=== PATIENT | female | born 2000 | race Two or more races ===

== ENCOUNTER → 2021-12-05 16:03 | Outpatient (BNVA) | payer MEDICAID, SELFPAY | PROVIDERS: Family Provider Nurse Practitioner; PCP Nurse Practitioner; Visit Provider Nurse Practitioner Family | DX: Z20.822 Contact with and (suspected) exposure to COVID-19 (principal); J06.9 Acute upper respiratory infection, unspecified; Z87.891 Personal history of nicotine dependence | CPT/HCPCS: 87635 ==

== ENCOUNTER 2023-01-10 12:40 | Emergency (ER) | payer MEDICAID, SELFPAY ==
--- NOTE | 2023-01-10 12:45 | W.ED.ABDPA2 ---
HPI - Abdominal Pain General: Chief Complaint: Abdominal Pain Stated Complaint: severe lower abd camps Time Seen by Provider: 01/10/23 12:44 History of Present Illness: Ms. Mascorro is a 22-year-old lady without significant past medical history presenting to the emergency department for lower abdominal pain with cramping. She reports a few weeks of symptoms that have been progressively more intense and frequent. She denies associated GI or symptoms though does report concern over yeast infection. She was sexually active in October and that was her last normal period. 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 Intensity symptoms is moderate when present. Denies specific provoking events. No other specific changes in health, exacerbating, or alleviating factors identified. G0 LMP 11/01/22 Onset (ago): week(s) Pain Consistency: intermittent Location: Suprapubic and Pelvis Severity: moderate Quality: cramping and aching Radiation: none Migration to: no migration Exacerbating factors: nothing Relieving factors: nothing Associated Symptoms: Reports no associated symptoms Review of Systems General: Reports: 10 or more systems reviewed and unremarkable except in HPI and below PFSH ED PFSH: Medical History (Updated 01/18/23 @ 00:00 by TASHA Ghosh) No significant past medical history Surgical History (Updated 01/10/23 @ 12:57 by Alton Curtis MD) No significant past surgical history Physical Exam Const: COMMON NORMALS: alert GENERAL APPEARANCE: cooperative and well developed HENMT: COMMON NORMALS: normocephalic and atraumatic HEAD & SCALP: normocephalic and atraumatic Eye: COMMON NORMALS: conjunctivae normal CONJUNCTIVA: Yes conjunctivae normal SCLERA: sclerae normal Neck/C-Spine: COMMON NORMALS: supple GENERAL: Yes trachea midline Resp: COMMON NORMALS: clear to auscultation bilaterally EFFORT & INSPECTION: Yes able to speak in complete sentences AUSCULTATION: clear to auscultation bilaterally Cardio: COMMON NORMALS: regular rate and regular rhythm RATE: regular rate RHYTHM: regular rhythm GI: COMMON NORMALS: Soft to palpation PALPATION: Yes Soft to palpation and No Tenderness to palpation present (GI) : OTHER: Pelvic exam performed with manager social work present. Normal external genitalia. There is mild amount of thick white discharge. Cervix appears normal and visually closed. No evidence of bleeding. Bimanual exam normal. Extremity: GENERAL: Yes normal exam except as noted and No edema Neuro: COMMON NORMALS: moves all extremities SENSORIUM/ORIENTATION: Yes alert and No Orientation impaired Psych: COMMON NORMALS: mental status grossly normal and Normal thought process present THOUGHT PROCESS: Normal thought process present Course Vital Signs: Vital signs: Vital Signs Temperature 98.6 F 01/10/23 12:47 Pulse Rate 80 01/10/23 15:42 Respiratory Rate 16 01/10/23 15:42 Blood Pressure 131/51 01/10/23 15:42 Pulse Oximetry 99 01/10/23 15:42 Oxygen Delivery Me thod 01/10/23 15:42 MDM - Abdominal Pain Medical Decision Making 22 lady presenting to the ER for evaluation of abdominal pain and abnormal vaginal bleeding. Exam as above. No evidence of peritonitis on abdominal exam. Labs with no leukocytosis, microcytic anemia discussed with patient, no significant metabolic abnormalities, hCG is positive. Squamous epithelial contamination on UA. Ultrasound demonstrates IUP at 10 w 0 d. Wet prep positive for trichomoniasis, BV, yeast. Patient treated with metronidazole. Will be prescribed intravaginal antifungal. Most likely etiology of symptoms is multifactorial including and trichomoniasis/BV/yeast infection. Patient to follow-up with OB. The results of ED evaluation were discussed with the patient including prescriptions and/or symptomatic cares (if applicable) including appropriate and responsible use, followup plan, and return precautions. The patient verbalized understanding and felt safe for discharge. Medical Records I reviewed the patient's medical records. Lab Data I reviewed the patient's lab results. 01/10/23 13:05 01/10/23 13:05 Labs/Radiology: Radiology Impressions Ultrasound 01/10/23 14:43 IMPRESSION: 1. Single intrauterine gestation of 10 weeks 0 days and EDC of 08/08/2023. 2. Normal cardiac activity. Laboratory Results WBC 9.1 10^3/uL (4.0-10.0) 01/10/23 13:05 RBC 4.43 10^6/uL (4.1-5.3) 01/10/23 13:05 Hgb 9.8 g/dL (11.5-15.3) L 01/10/23 13:05 Hct 32.6 % (37.0-47.0) L 01/10/23 13:05 MCV 73.6 fl (81-99) L 01/10/23 13:05 MCH 22.1 pg (28.0-34.0) L 01/10/23 13:05 MCHC 30.1 g/dL (30.0-36.0) 01/10/23 13:05 RDW 17.8 % (12.1-15.1) H 01/10/23 13:05 Plt Count 411 10^3/cmm (130-400) H 01/10/23 13:05 MPV 10.2 fL (7.4-10.4) 01/10/23 13:05 Neut % (Auto) 66.9 % 01/10/23 13:05 Lymph % (Auto) 24.9 % 01/10/23 13:05 [place] % (Auto) 6.5 % 01/10/23 13:05 Eos % (Auto) 1.1 % 01/10/23 13:05 Baso % (Auto) 0.2 % 01/10/23 13:05 Neut # (Auto) 6.11 10^3/uL (1.8-7.7) 01/10/23 13:05 Lymph # (Auto) 2.3 10^3/uL (0.8-4.8) 01/10/23 13:05 [place] # (Auto) 0.6 10^3/uL (0.2-0.9) 01/10/23 13:05 Eos # (Auto) 0.1 10^3/uL (0.0-0.8) 01/10/23 13:05 Baso # (Auto) 0.0 10^3/uL (0.0-0.1) 01/10/23 13:05 Nucleated RBC % (auto) 0 % 01/10/23 13:05 Nucleated RBCs # 0.0 /100WBC 01/10/23 13:05 Sodium 137 mmol/L (136-145) 01/10/23 13:05 Potassium 3.6 mmol/L (3.5-5.1) 01/10/23 13:05 Chloride 102 mmol/L (98-107) 01/10/23 13:05 Carbon Dioxide 23 mmol/L (22-29) 01/10/23 13:05 Anion Gap 15.6 (5-19) 01/10/23 13:05 BUN 8 mg/dL (6-20) 01/10/23 13:05 Creatinine 0.4 mg/dL (0.5-0.9) L 01/10/23 13:05 GFR Calculation 201.5 mL/min (90-130) H 01/10/23 13:05 Glucose 99 mg/dL (65-115) 01/10/23 13:05 Calculated Osmolality 282 mOsm/kg (285-295) L 01/10/23 13:05 Calcium 9.1 mg/dL (8.5-10.5) 01/10/23 13:05 Total Bilirubin 0.2 mg/dL (0.15-1.2) 01/10/23 13:05 AST 13 U/L (0-32) 01/10/23 13:05 ALT 10 U/L (0-33) 01/10/23 13:05 Alkaline Phosphatase 74 U/L (35-105) 01/10/23 13:05 Total Protein 7.4 g/dL (6.6-8.7) 01/10/23 13:05 Albumin 4.2 g/dL (3.5-5.2) 01/10/23 13:05 Globulin 3.2 g/dL (1.3-4.6) 01/10/23 13:05 HCG, Qual Positive (Negative) H 01/10/23 13:10 Ser , Semi-Qnt 32307.00 mIU/mL 01/10/23 13:04 Urine Color Yellow (Yellow) 01/10/23 13:10 Urine Appearance Hazy (CLEAR) A 01/10/23 13:10 Urine pH 7 (5-7) 01/10/23 13:10 Ur Specific [place] 1.020 (1.005-1.030) 01/10/23 13:10 Urine Protein Neg (Negative) 01/10/23 13:10 Urine Glucose (UA) Norm (Normal) 01/10/23 13:10 Urine Ketones Negative (Negative) 01/10/23 13:10 Urine Blood Neg (Negative) 01/10/23 13:10 Urine Nitrate Negative (Negative) 01/10/23 13:10 Urine Bilirubin Neg (Negative) 01/10/23 13:10 Urine Urobilinogen 4 mg/dL (Negative) H 01/10/23 13:10 Ur Leukocyte Esterase 2+ (Negative) H 01/10/23 13:10 Urine RBC 0-4 /hpf (0-2) H 01/10/23 13:10 Urine WBC 5-10 /hpf (0-5) H 01/10/23 13:10 Ur Squamous Epith Cells 15-25 /hpf (0-5) H 01/10/23 13:10 Amorphous Sediment 2+ /hpf 01/10/23 13:10 Urine Bacteria Trace /hpf (NONE) 01/10/23 13:10 Urine Mucus 1+ /hpf 01/10/23 13:10 Urine Yeast Trace /hpf 01/10/23 13:10 Blood Type O Positive 01/10/23 14:17 Rho(D) Type Positive 01/10/23 14:17 Discharge Plan Discharge Patient Disposition: Home Clinical Impression: Abdominal cramping affecting , 10 weeks gestation of , Microcytic anemia, Bacterial vaginosis, Trichomonal vaginitis, Vaginal yeast infection Condition: Stable Discharge Orders: Discharge ED (Routine); Ordered 01/10/23 Ordered By: Alton Curtis Discharge Diet: Usual diet Discharge Activity: Resume usual activity Patient Instructions: Bacterial Vaginosis (ED), Trichomoniasis (ED), Yeast Infection (ED), at 7 to 10 Weeks (ED) Activity Restrictions/Additional Instructions: Thank you for visiting the emergency department. You were seen and evaluated for abdominal pain. The most likely cause of your symptoms is multifactorial. You are not at approximately 10 weeks. Additionally you have a yeast infection as well as trichomoniasis and bacterial vaginosis. The trichomoniasis and bacterial vaginosis should be cured with the medication administered in the emergency department. I will prescribe a vaginal cream for the yeast infection. I will message case management for OB follow-up. Return to the emergency department for uncontrolled symptoms or anything else that you are concerned about and feel needs emergency department evaluation. As discussed your school does need to review MSDS sheets to evaluate for safety during . Acetone is not safe during . 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
[2023-01-10 12:47] VITALS: BP 127/57; PULSE 100; RESP 16; TEMP 37; O2SAT 100; BMI 29.9
[2023-01-10 13:20] LABS: Basophils % 0.2 %; Eosinophils # 0.1 10^3/uL (0.0-0.8); Eosinophils % 1.1 %; Hematocrit 32.6 % (37.0-47.0); Hemoglobin 9.8 g/dL (11.5-15.3); Lymphocytes # 2.3 10^3/uL (0.8-4.8); Lymphocytes % 24.9 %; Mean Corpuscular HGB Conc 30.1 g/dL (30.0-36.0); Mean Corpuscular Hemoglobin 22.1 pg (28.0-34.0); Mean Corpuscular Volume 73.6 fl (81-99); Mean Platelet Volume 10.2 fL (7.4-10.4); Monocytes # 0.6 10^3/uL (0.2-0.9); Monocytes % 6.5 %; Neutrophils # 6.11 10^3/uL (1.8-7.7); Neutrophils % 66.9 %; Nucleated Red Blood Cells % 0 %; Platelet Count 411 10^3/cmm (130-400); Red Blood Count 4.43 10^6/uL (4.1-5.3); Red Cell Distribution Width 17.8 % (12.1-15.1); White Blood Count 9.1 10^3/uL (4.0-10.0)
[2023-01-10 13:29] LABS: HCG Qualitative Urine. Positive (Negative)
[2023-01-10 13:35] LABS: Alanine Aminotransferase 10 U/L (0-33); Albumin Level 4.2 g/dL (3.5-5.2); Alkaline Phosphatase 74 U/L (35-105); Anion Gap 15.6 (5-19); Aspartate Amino Transferase 13 U/L (0-32); Blood Urea Nitrogen 8 mg/dL (6-20); Calcium 9.1 mg/dL (8.5-10.5); Carbon Dioxide 23 mmol/L (22-29); Chloride 102 mmol/L (98-107); Globulin 3.2 g/dL (1.3-4.6); Glomerular Filtration Rate 201.5 mL/min (90-130); Glucose 99 mg/dL (65-115); Osmolality Calculated 282 mOsm/kg (285-295); Potassium 3.6 mmol/L (3.5-5.1); Sodium 137 mmol/L (136-145); Total Bilirubin 0.2 mg/dL (0.15-1.2); Total Protein 7.4 g/dL (6.6-8.7)
[2023-01-10 14:30] LABS: Urine Color Yellow (Yellow)
[2023-01-10 14:31] LABS: Add Urine Microscopic? YES; Bilirubin Urine Neg (Negative); Blood Urine Neg (Negative); Glucose Urine UA Norm (Normal); Ketones Urine Negative (Negative); Leukocyte Esterase Urine 2+ (Negative); Nitrate Urine Negative (Negative); Protein Urine Neg (Negative); Urine Appearance Hazy (CLEAR); Urobilinogen Urine 4 mg/dL (Negative); pH Urine 7 (5-7)
[2023-01-10 14:32] LABS: Amorphous Sediment Urine 2+ /hpf; Bacteria Urine TRACE /hpf; Mucus Urine 1+ /hpf; RBC Urine 0-4 /hpf (0-2); Squamous Epithelial Cell Urine 15-25 /hpf (0-5)
[2023-01-10 14:33] LABS: Add Urine Culture? No
--- NOTE | 2023-01-10 14:43 | US_ITS ---
WS: [id number] EARLY OBSTETRICAL ULTRASOUND (<14 WEEKS). HISTORY: pelvic cramping/pain, lmp sometime in october, hcg [address]608 COMPARISON: None available. Single intrauterine gestational sac is identified. Cardiac activity at 176 BPM. [place]-rump length miguel angel sures 3.2 cm which corresponds to a gestation of 10w0d. Normal-appearing yolk sac and amnion demonstr ated. No subchorionic hemorrhage. No free fluid. Normal RIGHT ovary. LEFT ovary is poorly visualized. Corpus luteal cyst RIGHT ovary with maximum diam eter of 1.7 cm. US/US OB <= 14 weeks fetus [id number] IMPRESSION: 1. Single intrauterine gestation of 10 weeks 0 days and EDC of 08/08/2023. 2. Normal cardiac activity.
[2023-01-10 15:42] VITALS: BP 131/51; PULSE 80; RESP 16; O2SAT 99
--- NOTE | 2023-01-10 16:17 | PC.NURSE ---
Nurse did not pull enough tablets for flagyl. Only 1 tablet was taken when 4 should have been pulled. Medication was returned to [facility] and reordered so 4 tablets could be taken from [facility].
[2023-01-10] MEDS: metroNIDAZOLE 500 MG Tablet 2000 MG PO (16:20)
== END 2023-01-10 14:23 | disposition home or self-care (01) ==
PROVIDERS: Emergency Provider Emergency Medicine
DX: O26.891 Other specified pregnancy related conditions, first trimester (principal); O98.311 Other infections with a predominantly sexual mode of transmission complicating pregnancy, first trimester; A59.01 Trichomonal vulvovaginitis; Z3A.10 10 weeks gestation of pregnancy; R10.30 Lower abdominal pain, unspecified; O23.591 Infection of other part of genital tract in pregnancy, first trimester; B96.89 Other specified bacterial agents as the cause of diseases classified elsewhere; O98.811 Other maternal infectious and parasitic diseases complicating pregnancy, first trimester; B37.31 Acute candidiasis of vulva and vagina; O99.011 Anemia complicating pregnancy, first trimester; D64.89 Other specified anemias
CPT/HCPCS: 36415; 76801; 80053; 81001; 81025; 84702; 85025; 86900; 87210; 87491; 87591; 99284

== ENCOUNTER 2023-02-11 01:33 | Emergency (ER) | payer MEDICAID, SELFPAY ==
[2023-02-11 01:44] VITALS: BP 148/72; PULSE 95; RESP 16; O2SAT 100; BMI 30.7
--- NOTE | 2023-02-11 01:52 | XRR_ITS ---
PROCEDURE INFORMATION: Exam: XR Chest Exam date and time: 02/11/2023 1:55 AM Age: 22 years old Clinical indication: Pain; Chest pressure; Patient HX: C/O left sided chest discomfort. ; Additional info: Left side pleuritic pain, PT is 14 weeks TECHNIQUE: Imaging protocol: Radiologic exam of the chest. Views: 1 view. COMPARISON: No relevant prior studies available. FINDINGS: Lungs: Low lung volumes are present. No consolidation. No mediastinal shift. Pleural spaces: Unremarkable. No pleural effusion. No pneumothorax. Heart/Mediastinum: Unremarkable. No cardiomegaly. Bones/joints: Unremarkable. XR/XR chest 1V portable [id number] IMPRESSION: No acute findings.
--- NOTE | 2023-02-11 01:58 | W.ED.BACK ---
HPI - Back Pain/Injury General: Chief Complaint: Back Pain/Injury Stated Complaint: Shoulder Pain Time Seen by Provider: 02/11/23 01:34 History of Present Illness: Patient is a 22-year-old female comes to the ED with back pain. Patient is and is 14 weeks . She denies any related complaints. Denies any dysuria, hematuria, vaginal bleeding, vaginal discharge or abdominal pain. Tonight she woke up and was having left-sided upper back pain. She rates the pain currently a 9 out of 10. Pain worsens with certain movements of her left arm and torso. Pain also worsens when she takes a deep breath. Denies any fevers or vomiting. Patient has not taken any Tylenol or any other pain med before coming to the ED. Associated symptoms: Deny abdominal pain, chills, dysuria, fatigue, fever(s), hematuria, nausea or vomiting Review of Systems Const: Denies: fever(s), chills or fatigue Eyes: Denies: change in vision or eye discomfort ENMT: Denies: throat pain, odynophagia, nasal discharge or nasal congestion Card: Denies: chest pain, palpitations, edema, swelling of feet/ankles, dyspnea on exertion or orthopnea Resp: Denies: dyspnea, productive cough or non-productive cough GI: Denies: abdominal pain, nausea, vomiting, diarrhea, constipation or hematochezia : Denies: flank pain, dysuria or hematuria Musc: Reports: back pain; Denies: neck pain or extremity swelling Skin/Breast: Denies: rash or new lesions Neuro: Denies: headache(s), numbness in extremities or weakness in extremities [facility] ED PFSH: Medical History No significant past medical history Surgical History No significant past surgical history Physical Exam Const: COMMON NORMALS: no acute distress, patient oriented x3 and alert GENERAL APPEARANCE: cooperative HENMT: COMMON NORMALS: normocephalic HEAD & SCALP: normocephalic MOUTH: Normal oral and palatal mucosa present THROAT: posterior oropharynx normal and uvula midline Neck/C-Spine: COMMON NORMALS: supple GENERAL: Yes normal visual inspection Resp: COMMON NORMALS: normal respiratory effort, No retractions, No use of accessory muscles and clear to auscultation bilaterally AUSCULTATION: clear to auscultation bilaterally Cardio: COMMON NORMALS: regular rate, regular rhythm, S1 normal heart sound present, S2 normal heart sound present, No gallops present (Cardio), No clicks present (Cardio), No murmurs present (Cardio) and Peripheral pulses 2+ throughout RATE: regular rate RHYTHM: regular rhythm HEART SOUNDS: S1 normal heart sound present and S2 normal heart sound present PERIPHERAL PULSES: Peripheral pulses 2+ throughout GI: COMMON NORMALS: Normal to inspection, nondistended, normoactive bowel sounds present, Soft to palpation, non-tender and no masses PALPATION: Yes Soft to palpation : COMMON NORMALS: Yes no CVA tenderness BLADDER/KIDNEY EXAM: Yes no CVA tenderness Back/Pelvis: COMMON NORMALS: no CVA tenderness THORACIC SPINE/UPPER BACK: Yes pain with ROM, No thoracic spinal tenderness and Yes paraspinal muscle tenderness Thoracic paraspinal muscle tenderness: left Left thoracic paraspinal muscle tenderness: T4, T5 and T6 Extremity: COMMON NORMALS: normal to inspection Neuro: COMMON NORMALS: patient oriented x3 SENSORIUM/ORIENTATION: Yes alert GAIT: Yes Normal gait present Skin: GENERAL SKIN EXAM: dry skin Course Vital Signs: Vital signs: Vital Signs Pulse Rate 95 02/11/23 03:10 Respiratory Rate 16 02/11/23 03:10 Blood Pressure 148/72 02/11/23 03:10 Pulse Oximetry 100 02/11/23 03:10 Oxygen Delivery Me thod 02/11/23 01:44 MDM - Back Pain/Injury Medical Decision Making Patient is a 22-year-old female comes to the ED with back pain. Patient is and is 14 weeks . She denies any related complaints. Denies any dysuria, hematuria, vaginal bleeding, vaginal discharge or abdominal pain. Tonight she woke up and was having left-sided upper back pain. She rates the pain currently a 9 out of 10. Pain worsens with certain movements of her left arm and torso. Pain also worsens when she takes a deep breath. Denies any fevers or vomiting. Patient has not taken any Tylenol or any other pain med before coming to the ED. vitals are stable. Patient appears nontoxic in no acute distress. She has some left T4-T5 and T6 thoracic paraspinal muscle tenderness but rest of exam is benign. Nurse performed Doppler on patient and her heart tones were picked up at around 140 bpm. Chest x-ray showed no acute findings. Given patient's exam and presentation today she has a muscle strain of upper back. She felt better after medications. She was given a dose of Tylenol and Robaxin here in the ED. She was stable for discharge home and sent with a prescription for Robaxin for any back pain or muscle spasms. Told to take [id number] Tylenol per bottle instruction to help with pain. Follow-up with provider at her next scheduled appointment. Return to ED precautions given. Patient understood and agreed with plan. Labs Radiology Impressions Chest X-Ray 02/11/23 01:52 IMPRESSION: No acute findings. Discharge Plan Discharge Patient Disposition: Home Clinical Impression: Muscle strain of upper back Condition: Stable Prescriptions: New methocarbamol 750 mg tablet 750 mg PO Q8H PRN (Reason: Back muscle spasms and pain) Qty: 15 0RF Discharge Orders: Discharge ED (Routine); Ordered 02/11/23 Ordered By: Dilshad Scott Discharge Diet: Regular Discharge Activity: Increase activity as tolerated Patient Instructions: Back Pain (ED) Activity Restrictions/Additional Instructions: Follow-up with medical provider as directed at your next scheduled appointment. Take medications as prescribed. Return to the ER or your medical provider if condition worsens. Please read and understand discharge instructions. Thank you for choosing [facility] for your healthcare needs today. Please realize this is an emergency room and that we are providing you with a medical screening exam and this may not be complete and all inclusive of all the testing and or work up that you may need to determine your ailment or severity of your illness. It is very important that you follow up as instructed or that you return to the Emergency Department should you have concerns or if your condition changes or worsens in any way. 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
[2023-02-11] MEDS: acetaminophen 500 mg Tablet 1000 MG PO (02:07)
[2023-02-11] MEDS: methocarbamol 750 mg Tablet PO (02:08)
[2023-02-11 03:10] VITALS: BP 148/72; PULSE 95; RESP 16; O2SAT 100
--- NOTE | 2023-02-13 14:12 | DCPLANNER ---
sales planning manager called patient due to no primary care physician - patient states that she sees Dr. Jaramillo at [facility]
== END 2023-02-11 03:11 | disposition home or self-care (01) ==
PROVIDERS: Emergency Provider Physician Assistant; PCP Family Medicine
DX: O99.891 Other specified diseases and conditions complicating pregnancy (principal); S29.012A Strain of muscle and tendon of back wall of thorax, initial encounter; X58.XXXA Exposure to other specified factors, initial encounter; Z3A.14 14 weeks gestation of pregnancy
CPT/HCPCS: 71045; 99283

== ENCOUNTER 2023-04-07 13:17 | Outpatient (CLI) | payer MEDICAID, SELFPAY ==
[2023-04-07 13:17] VITALS: BMI 34.3
[2023-04-07 14:06] VITALS: BP 104/56; PULSE 84
[2023-04-07 14:21] VITALS: BP 115/64; PULSE 86
[2023-04-07 14:25] LABS: Urine Appearance Clear (CLEAR); Urine Color Yellow (Yellow); pH Urine 6.5 (5-7)
[2023-04-07 14:26] LABS: Add Urine Culture? Yes; Bacteria Urine 2+ /hpf; Bilirubin Urine Neg (Negative); Blood Urine Neg (Negative); Glucose Urine UA Norm (Normal); Ketones Urine Negative (Negative); Leukocyte Esterase Urine 2+ (Negative); Nitrate Urine Negative (Negative); Protein Urine Neg (Negative); Urobilinogen Urine Norm (Negative); WBC Urine 15-25 /hpf (0-5)
[2023-04-07 14:36] VITALS: BP 123/69; PULSE 76
== END 2023-04-07 14:45 | disposition home or self-care (01) ==
LOC: OPOB 13:23 → OBGYN 13:24
PROVIDERS: PCP Family Medicine; Visit Provider Family Medicine
DX: O26.899 Other specified pregnancy related conditions, unspecified trimester (principal); Z3A.00 Weeks of gestation of pregnancy not specified; M54.9 Dorsalgia, unspecified
CPT/HCPCS: 81001; 87086; 99211

== ENCOUNTER 2023-05-16 23:00 | Outpatient (CLI) | payer MEDICAID, SELFPAY ==
[2023-05-16 23:03] VITALS: BMI 35.5
[2023-05-16 23:19] VITALS: BP 123/76; PULSE 90
== END 2023-05-16 23:52 | disposition home or self-care (01) ==
LOC: OPOB 23:02 → OBGYN 23:03
PROVIDERS: PCP Family Medicine; Visit Provider Family Medicine
DX: O26.893 Other specified pregnancy related conditions, third trimester (principal); R10.9 Unspecified abdominal pain; Z3A.28 28 weeks gestation of pregnancy
CPT/HCPCS: 59025

== ENCOUNTER 2023-07-19 05:32 | Outpatient (CLI) | payer MEDICAID, SELFPAY ==
[2023-07-19] VITALS (12 sets, daily range): BP systolic 123–139; BP diastolic 74–96; PULSE 75–92; TEMP 35.6; BMI 37.3
[2023-07-19 07:20] LABS: Urine Creatinine 23 mg/dL (28-217); Urine Protein Random 8 mg/dL
[2023-07-19 07:22] LABS: UPRO/UCREAT Ratio 0.35 mg/mg CR
[2023-07-19 07:52] LABS: Bilirubin Urine Neg (Negative); Blood Urine Neg (Negative); Glucose Urine UA Norm (Normal); Ketones Urine Negative (Negative); Leukocyte Esterase Urine 2+ (Negative); Nitrate Urine Negative (Negative); Protein Urine Neg (Negative); Specific Gravity, Urine 1.005 (1.005-1.030); Sulfosalicylic Acid Urine Negative (Negative); Urine Appearance Hazy (CLEAR); Urine Color Yellow (Yellow); Urobilinogen Urine Norm (Negative); pH Urine 8 (5-7)
[2023-07-19 07:53] LABS: Add Urine Culture? Yes; Bacteria Urine 2+ /hpf
== END 2023-07-19 08:30 | disposition home or self-care (01) ==
LOC: OPOB 05:35 → OBGYN 05:36
PROVIDERS: PCP Family Medicine; Visit Provider Family Medicine
DX: O26.899 Other specified pregnancy related conditions, unspecified trimester (principal); Z3A.00 Weeks of gestation of pregnancy not specified; R51.9 Headache, unspecified
CPT/HCPCS: 81001; 82570; 84156; 87086

== ENCOUNTER 2023-07-20 11:34 | Outpatient (CLI) | payer MEDICAID, SELFPAY ==
[2023-07-20 13:34] LABS: Urine Total Protein 4.8 mg/dL (0-150)
[2023-07-20 14:14] LABS: Total Volume, Urine 2675 mL; Urine Total Protein 24 Hour 128.4 mg/24hr (0-150)
== END 2023-07-20 11:35 | disposition home or self-care (01) ==
PROVIDERS: PCP Family Medicine; Visit Provider Family Medicine
DX: Z01.89 Encounter for other specified special examinations (principal)
CPT/HCPCS: 84156

== ENCOUNTER 2023-08-02 09:59 | Outpatient (CLI) | payer MEDICAID, SELFPAY ==
[2023-08-02 10:00] VITALS: BMI 37.9
[2023-08-02 10:18] VITALS: BP 138/71; PULSE 103
[2023-08-02 10:50] VITALS: BP 125/79; PULSE 90
[2023-08-02 11:10] VITALS: BP 141/88; PULSE 90
== END 2023-08-02 11:34 | disposition home or self-care (01) ==
LOC: OPOB 10:04 → OBGYN 10:04
PROVIDERS: PCP Family Medicine; Visit Provider Family Medicine
DX: O26.899 Other specified pregnancy related conditions, unspecified trimester (principal); Z3A.00 Weeks of gestation of pregnancy not specified; N89.8 Other specified noninflammatory disorders of vagina
CPT/HCPCS: 59025; 99211

== ENCOUNTER 2023-08-07 15:47 | Outpatient (CLI) | payer MEDICAID, SELFPAY ==
[2023-08-07 16:00] VITALS: BMI 38.0
[2023-08-07 16:05] VITALS: BP 137/78; PULSE 81
[2023-08-07 16:20] VITALS: BP 135/74; PULSE 88
[2023-08-07 16:35] VITALS: BP 138/73; PULSE 86
[2023-08-07 16:50] VITALS: BP 141/83; PULSE 84
[2023-08-07 17:05] VITALS: BP 144/88; PULSE 73
== END 2023-08-07 17:30 | disposition home or self-care (01) ==
LOC: OPOB 15:51 → OBGYN 15:52
PROVIDERS: PCP Family Medicine; Visit Provider Family Medicine
DX: O16.9 Unspecified maternal hypertension, unspecified trimester (principal); Z3A.00 Weeks of gestation of pregnancy not specified
CPT/HCPCS: 59025

== ENCOUNTER 2023-08-14 15:00 | Inpatient (IN) | payer MEDICAID, SELFPAY ==
[2023-08-14] VITALS (35 sets, daily range): BP systolic 129–170; BP diastolic 68–104; PULSE 73–107; RESP 16–18; TEMP 36.1–36.9; O2SAT 98–99; BMI 38.0
[2023-08-14] MEDS: miSOPROStol 100 mcg tablet 25 MCG VAGINAL (16:27)
[2023-08-14 17:32] LABS: Basophils % 0.3 %; Eosinophils # 0.1 10^3/uL (0.0-0.8); Eosinophils % 0.9 %; Hematocrit 36.9 % (36-47); Lymphocytes # 2.5 10^3/uL (0.8-4.8); Lymphocytes % 22.5 %; Mean Corpuscular Hemoglobin 26.5 pg (27-33); Mean Corpuscular Volume 82.7 fl (85-98); Mean Platelet Volume 11.8 fL (7.4-10.4); Monocytes # 0.5 10^3/uL (0.2-0.9); Monocytes % 4.6 %; Neutrophils # 8.01 10^3/uL (1.8-7.7); Neutrophils % 70.9 %; Nucleated Red Blood Cells % 0 %; Platelet Count 276 10^3/cmm (157-399); Red Blood Count 4.46 10^6/uL (3.85-5.65); Red Cell Distribution Width 18.9 % (12.1-15.1); White Blood Count 11.29 10^3/uL (3.29-11.43)
[2023-08-14 18:02] LABS: Slide Review Slide Review Perform
[2023-08-14] MEDS: fentaNYL 50 mcg/mL INJ 2mL IVP (20:37)
[2023-08-14 20:59] LABS: Add Urine Microscopic? YES; Bilirubin Urine Neg (Negative); Blood Urine 3+ (Negative); Glucose Urine UA Norm (Normal); Ketones Urine Negative (Negative); Leukocyte Esterase Urine Trace (Negative); Nitrate Urine Negative (Negative); Protein Urine 1+ (Negative); Specific Gravity, Urine 1.015 (1.005-1.030); Urine Appearance Hazy (CLEAR); Urine Color Yellow (Yellow); Urobilinogen Urine 1 mg/dL (Negative); pH Urine 6.5 (5-7)
[2023-08-14 21:00] LABS: Add Urine Culture? No; Bacteria Urine 3+ /hpf; RBC Urine 40-50 /hpf (0-2); Squamous Epithelial Cell Urine 15-25 /hpf (0-5)
[2023-08-14 21:13] LABS: Urine Creatinine 140 mg/dL (28-217); Urine Protein Random 56 mg/dL
[2023-08-14 21:16] LABS: Chloride 105 mmol/L (98-107)
[2023-08-14] MEDS: lactated ringers 1,000 ML 999 ML IV ×2 (21:25→22:35)
[2023-08-14 21:39] LABS: Alanine Aminotransferase 15 U/L (0-33); Albumin Level 3.4 g/dL (3.5-5.2); Alkaline Phosphatase 285 U/L (35-105); Anion Gap 15.5 (5-19); Aspartate Amino Transferase 19 U/L (0-32); Blood Urea Nitrogen 10 mg/dL (6-20); Calcium 9.3 mg/dL (8.5-10.5); Carbon Dioxide 20 mmol/L (22-29); Globulin 3.4 g/dL (1.3-4.6); Glomerular Filtration Rate 154.3 mL/min (90-130); Glucose 110 mg/dL (65-115); Osmolality Calculated 284 mOsm/kg (285-295); Potassium 3.5 mmol/L (3.5-5.1); Sodium 137 mmol/L (136-145); Total Bilirubin 0.2 mg/dL (0.15-1.2); Total Protein 6.8 g/dL (6.6-8.7)
[2023-08-14] MEDS: ROPivacaine syringe 100 MG/50 ML SYRINGE 10 MG EPIDURAL (22:51)
--- NOTE | 2023-08-14 22:55 | P.ANESUD_ITS ---
Pre-Anesthetic Update Pre-Anesthetic Assessment: Date of Surgery/Procedure: 08/14/23 Preop Lillian gnosis: IUP Proposed Procedure: Labor epidural Any changes to Pre-Anesthetic Assessment?: No Last Intake: 08/14/23: 2029 Labs Last 48hrs: Short CBC 08/14/23 Range/Units 15:40 WBC 11.29 (3.29-11.43) 10^ 3/uL Hgb 11.80 (11.27-16.99) g/ dL Hct 36.9 (36-47) % MCV 82.7 L (85-98) fl Plt Count 276 (157-399) 10^3/c mm Neut % (Auto) 70.9 % Neut # (Auto) 8.01 H (1.8-7.7) 10^3/u L BMP 08/14/23 20:30 Sodium 137 Potassium 3.5 Chloride 105 Carbon Dioxide 20 L BUN 10 Creatinine 0.5 Glucose 110 Calcium 9.3 Liver Function 08/14/23 Range/Units 20:30 Total Bilirubin 0.2 (0.15-1.2) mg/dL AST 19 (0-32) U/L ALT 15 (0-33) U/L Alkaline Phosphata se 285 H (35-105) U/L Albumin 3.4 L (3.5-5.2) g/dL Urine 08/14/23 Range/Units 20:30 Urine Color Yellow (Yellow) Urine Appearance Hazy A (CLEAR) Urine pH 6.5 (5-7) Ur Specific Gravit y 1.015 (1.005-1.030) Urine Protein 1+ H (Negative) Urine Glucose (UA) Norm (Normal) Urine Ketones Negative (Negative) Urine Nitrate Negative (Negative) Urine Bilirubin Neg (Negative) Ur Leukocyte Isabella ase Trace H (Negative) Urine RBC 40-50 H (0-2) /hpf Urine WBC 5-10 H (0-5) /hpf Vitals: Temperature 97.3 F L 08/14/23 19:28 Temperature Source Oral 08/14/23 16:02 Pulse Rate 85 08/14/23 22:53 Pulse Rhythm Regular 08/14/23 14:45 Pulse Strength 3+ Normal 08/14/23 14:45 Respiratory Rate 18 08/14/23 20:37 Respiratory Effort Spontaneous, Non- Labored 08/14/23 20:37 Respiratory Depth Normal 08/14/23 20:37 Respiratory Patter n Normal 08/14/23 20:37 Blood Pressure 162/82 08/14/23 22:53 Pulse Oximetry 99 08/14/23 22:51 Oxygen Delivery Me thod Room Air 08/14/23 16:02 Exam: Pre-Anes Outpt Exam: alert, oriented x 3, clear to auscultation bilaterally and regular rate & rhythm Cardiac Studies: No Data to Display Anesthesia Procedures Epidural: Time Out Performed: Yes Consents Signed: Procedure Consent Consent: requested by attending/covering physician, from patient, risks and benefits reviewed and patient agrees to proceed Lumbar Level: L4-L5 Epidural position: sitting Epidural procedure: sterile prep of area, 1% lidocaine to numb the area, 18 g needle, negative for paresthesia passed, neg for paresthesia, test dose given, 1.5% xylocaine 1:200k epi, 0.2% Ropivacaine bolus ml (5), placed PCEA, no systemic response, sterile dressing applied, L.U.D. no apparent complications and 0.2% Ropiavacaine @ mls/hr (13) Additional Comments: BJ 6cm, easily threaded catheter to 5cm in the space.
[2023-08-15] VITALS (93 sets, daily range): BP systolic 109–179; BP diastolic 52–101; PULSE 70–100; RESP 16; TEMP 35.8–37.6
[2023-08-15] MEDS: miSOPROStol 100 mcg tablet 25 MCG VAGINAL (00:02)
[2023-08-15] MEDS: dextrose 5%-lactated ringers 1,000 ML 125 ML IV ×3 (00:50→16:15)
[2023-08-15] MEDS: ROPivacaine syringe 100 MG/50 ML SYRINGE 10 MG EPIDURAL ×4 (03:39→16:50)
--- NOTE | 2023-08-15 07:54 | PM.OPHPUD ---
Labor & Delivery H&P Update Date of Procedure: August 15, 2023 Date H&P Performed: 08/14/23 Changes to previous documentation: None Admission Diagnosis: 23-year-old 1 at 41 weeks estimated gestational age with preeclampsia Preop diagnosis: IUP Planned procedure: Vaginal delivery Other information: The patient is a 23-year-old female who presented to my office yesterday for her routine check. During that check she was noted to have systolic blood pressures in the 140s and 150s. Because of her gestational age, we elected to proceed with induction. Her had been otherwise unremarkable. She had had a several visits where her blood pressures were mildly elevated. When we rechecked them they eventually decreased to a systolic blood pressure less than 140. She did have a preeclamptic panel done next several weeks ago which was negative. Otherwise she has had no symptoms of preeclampsia. She has had no significant swelling. No headaches. No visual changes. Her labs were performed. She was found to have a protein creatinine ratio of 0.4. Her labs have been unremarkable. Her blood type is O+. Her antibody screen is negative. Her glucose screen was 130. She is rubella nonimmune. She is GBS negative. The remainder of her infectious disease profile were within normal limits. Related Problem List Diagnoses (1) 41 weeks gestation of : (2) Preeclampsia: A&P Assessment and plan (1) 41 weeks gestation of : The patient was induced with Cytotec 25 mcg x 2. An epidural has been placed. An amniotomy was performed this morning. The patient did have a couple of severe blood pressures when she was having significant pain. When the pain was addressed with fentanyl and with the epidural, her blood pressures improved significantly. Her blood pressure has been elevated, and her protein creatinine ratio were elevated. Otherwise she has had no signs of preeclampsia. We will consider augmentation of her labor with Pitocin depending on her response to the amniotomy this morning Status: Acute (2) Preeclampsia: The patient has not had any severe features of preeclampsia. She did have some severe blood pressures just prior to an epidural that appeared to be a result of pain. As result magnesium has not been started. Status: Acute
[2023-08-15] MEDS: oxytocin 30 UNIT/500 ML BAG IV (11:15)
[2023-08-15] MEDS: lidocaine 2% INJ 20 mL INJECTION (21:31)
--- NOTE | 2023-08-15 22:00 | PM.DELIVERY ---
Delivery Note: Date of delivery: August 15, 2023 Pre-delivery diagnoses: 1. 23-year-old 1 at 41 weeks estimated gestational age presenting for induction due to preeclampsia Post-delivery diagnoses: Status post spontaneous vaginal delivery Procedure: Spontaneous vaginal delivery Delivering Physician: Mj Jaramillo Estimated blood loss (mL): 100 Pre-Delivery Course: The patient presented to the hospital with elevated blood pressure. She had a preeclamptic panel performed and was found to have a protein creatinine ratio of 0.4. Otherwise her preeclamptic panel was within normal limits. Her blood pressures continue to stay mildly elevated. She did have a few severe blood pressures when she was in pain prior to her epidural. After epidural was performed, her blood pressures were all outside of the severe range. She was placed on Cytotec x2. An amniotomy was performed. Her labor was augmented with Pitocin. She gradually progressed to complete. Delivery: DELIVERY: The patient progressed to complete without difficulty. She delivered a male with a weight of 7 pounds 14 ounces with Apgars of 7, 8. The baby was delivered from the DAYANARA position and placed on the mother's abdomen. The cord was then clamped and cut approximately 1 minute after delivery.. There was a nuchal cord x1 which was easily reduced prior to deliver the shoulders. Meconium was noted. The placenta and 3 vessel cord were delivered intact shortly thereafter. The perineum and vaginal vault were carefully examined. The patient was noted to have a large second-degree tear posterior midline. It was repaired with 3-0 Vicryl in the usual fashion. 2% lidocaine was used previous to repair for anesthesia.. Both the mother and the baby were in stable condition. Post-Delivery Status: Good A&P Assessment and plan (1) Spontaneous vaginal delivery: We will monitor the patient for signs of severe blood pressures. Otherwise she should not require magnesium. We will adjust her therapy based on her symptoms and vital signs. (2) Preeclampsia: Coding Level of Care Code Acute Code for Chg Fwd Diagnoses Spontaneous vaginal delivery O80 Preeclampsia O14.90
[2023-08-16] MEDS: benzocaine-menthol 78 gm Canister 1 SPRAY TOPICAL (00:08)
[2023-08-16] MEDS: lanolin oint 7 gm 1 APPLIC TOPICAL (00:08)
[2023-08-16 00:15] VITALS: BP 134/74; PULSE 81
[2023-08-16 00:25] VITALS: TEMP 37.3
--- NOTE | 2023-08-16 03:06 | PM.OBGYDC ---
Discharge Providers ETHNIC STUDIES PROFESSOR Date of Admission: 08/14/23 15:00 Date of Discharge: 08/16/23 Attending Provider at Admission: Mj Jaramillo MD Attending Provider at Discharge: Mj Jaramillo MD Primary Care Provider: Mj Jaramillo MD Diagnoses at Discharge Discharge Diagnosis (1) Spontaneous vaginal delivery: Status: Acute (2) Preeclampsia: Status: Acute Reason for Visit Reason for Visit: IOL Hospital Course Hospital Course The patient presented to the hospital for induction due to having elevated blood pressures. After being evaluated in the hospital she was found to have an elevated protein creatinine ratio together with elevated blood pressures. She was induced with Cytotec initially. An amniotomy was performed later. An epidural was placed. Pitocin was used to augment her labor. She progressed to complete and had an unremarkable delivery. Thick meconium was noted. She did have a second-degree posterior midline tear. Her course was unremarkable. Her blood pressures were largely within normal limits. Her child had to be transferred, and the mother was very anxious to be able to leave the hospital. We discussed the risks of leaving early despite her preeclampsia. The mother desired to leave prior to my recommendation from medical standpoint because her child was in the [place]ICU in [place]. We had a discussion regarding the risks and knifelike the mother had a good understanding of those risks prior to discharge. Physical Exam Narrative: The patient is alert. She appears comfortable. Her heart has a regular rate and rhythm with no murmurs appreciated. Lungs are clear to auscultation bilaterally. Her fundus is firm and below the umbilicus. Urinary Catheter Management: Feliciano: Cath Placed During This Visit: yes Reason for Continuing Indwelling Catheter: Required Immobilization for Trauma or Surgery or Anesthesia Urinary Catheter Date of Insertion: 08/14/23 Urinary Catheter Time of Insertion: 23:20 Discharge Data Studies Completed and Pending Pending at discharge Category Date Time Status Hemagram Timed Lab 08/16/23 10:05 Uncollected Laboratory Results WBC 11.29 10^3/uL (3.29-11.43) 08/14/23 15:40 RBC 4.46 10^6/uL (3.85-5.65) 08/14/23 15:40 Hgb 11.80 g/dL (11.27-16.99) 08/14/23 15:40 Hct 36.9 % (36-47) 08/14/23 15:40 MCV 82.7 fl (85-98) L 08/14/23 15:40 MCH 26.5 pg (27-33) L 08/14/23 15:40 MCHC 32.0 g/dL (30-55) 08/14/23 15:40 RDW 18.9 % (12.1-15.1) H 08/14/23 15:40 Plt Count 276 10^3/cmm (157-399) 08/14/23 15:40 MPV 11.8 fL (7.4-10.4) H 08/14/23 15:40 Neut % (Auto) 70.9 % 08/14/23 15:40 Lymph % (Auto) 22.5 % 08/14/23 15:40 Louisa % (Auto) 4.6 % 08/14/23 15:40 Eos % (Auto) 0.9 % 08/14/23 15:40 Baso % (Auto) 0.3 % 08/14/23 15:40 Neut # (Auto) 8.01 10^3/uL (1.8-7.7) H 08/14/23 15:40 Lymph # (Auto) 2.5 10^3/uL (0.8-4.8) 08/14/23 15:40 Louisa # (Auto) 0.5 10^3/uL (0.2-0.9) 08/14/23 15:40 Eos # (Auto) 0.1 10^3/uL (0.0-0.8) 08/14/23 15:40 Baso # (Auto) 0.0 10^3/uL (0.0-0.1) 08/14/23 15:40 Nucleated RBC % (auto) 0 % 08/14/23 15:40 Nucleated RBCs # 0.0 /100WBC 08/14/23 15:40 Sodium 137 mmol/L (136-145) 08/14/23 20:30 Potassium 3.5 mmol/L (3.5-5.1) 08/14/23 20:30 Chloride 105 mmol/L (98-107) 08/14/23 20:30 Carbon Dioxide 20 mmol/L (22-29) L 08/14/23 20:30 Anion Gap 15.5 (5-19) 08/14/23 20:30 BUN 10 mg/dL (6-20) 08/14/23 20:30 Creatinine 0.5 mg/dL (0.5-0.9) 08/14/23 20:30 GFR Calculation 154.3 mL/min (90-130) H 08/14/23 20:30 Glucose 110 mg/dL (65-115) 08/14/23 20:30 Calculated Osmolality 284 mOsm/kg (285-295) L 08/14/23 20: Uric Acid 4.0 mg/dL (2.4-5.7) 08/14/23 20: Calcium 9.3 mg/dL (8.5-10.5) 08/14/23 20: Total Bilirubin 0.2 mg/dL (0.15-1.2) 08/14/23 20:30 AST 19 U/L (0-32) 08/14/23 20:30 ALT 15 U/L (0-33) 08/14/23 20:30 Alkaline Phosphatase 285 U/L (35-105) H 08/14/23 20:30 Total Protein 6.8 g/dL (6.6-8.7) 08/14/23 20: Albumin 3.4 g/dL (3.5-5.2) L 08/14/23 20: Globulin 3.4 g/dL (1.3-4.6) 08/14/23 20:30 Urine Color Yellow (Yellow) 08/14/23 20:30 Urine Appearance Hazy (CLEAR) A 08/14/23 20: Urine pH 6.5 (5-7) 08/14/23 20:30 Ur Specific [place] 1.015 (1.005-1.030) 08/14/23 20: Urine Protein 1+ (Negative) H 08/14/23 20:30 Urine Glucose (UA) Norm (Normal) 08/14/23 20: Urine Ketones Negative (Negative) 08/14/23 20: Urine Blood 3+ (Negative) H 08/14/23 20:30 Urine Nitrate Negative (Negative) 08/14/23 20:30 Urine Bilirubin Neg (Negative) 08/14/23 20: Urine Urobilinogen 1 mg/dL (Negative) H 08/14/23 20:30 Ur Leukocyte Esterase Trace (Negative) H 08/14/23 20:30 Urine RBC 40-50 /hpf (0-2) H 08/14/23 20:30 Urine WBC 5-10 /hpf (0-5) H 08/14/23 20:30 Ur Squamous Epith Cells 15-25 /hpf (0-5) H 08/14/23 20:30 Amorphous Sediment Not Reportable 08/14/23 20:30 Urine Bacteria 3+ /hpf (NONE) H 08/14/23 20:30 U Random Total Protein 56 mg/dL 08/14/23 20:30 Urine Creatinine 140 mg/dL (28-217) 08/14/23 20:30 Protein/Creatinin Ratio 0.40 mg/mg CR 08/14/23 20:30 Vitals Last Vital Signs Temp 99.6 F 08/15/23 19:30 Pulse 81 08/16/23 00:15 Resp 16 08/15/23 16:02 BP 134/74 08/16/23 00:15 Pulse Ox 99 08/14/23 23:01 O2 Del Method Room Air 08/14/23 16:02 Discharge Plan Discharge Patient Disposition: Home Condition: Good Prescriptions: New ibuprofen 800 mg Tablet 800 mg PO TID Qty: 45 0RF Continued PNV cmb#[id number]-ferrous fumarate-FA [] 28 mg iron- 800 mcg Tablet 1 tab PO DAILY ferrous sulfate [iron] 325 mg (65 mg iron) Tablet 325 mg PO DAILY Discontinued valacyclovir [Valtrex] 500 mg Tablet 500 mg PO DAILY Discharge Orders: Discharge Order (Routine); Ordered 08/16/23 Ordered By: Mj Jaramillo Referrals: Mj Jaramillo MD [Primary Care Provider] - 4-7 days Discharge Diet: Usual diet Discharge Activity: Limit activity as instructed Patient Instructions: Opioid Safety Discharge Attestations ETHNIC STUDIES PROFESSOR Time Spent in Discharge Care*: less than 30 min Coding Level of Care Code Acute Code for Chg Fwd Diagnoses Spontaneous vaginal delivery O80 Preeclampsia O14.90
[2023-08-16] MEDS: HYDROcodone-acetaminophen 5-325 mg Tablet PO (03:24)
[2023-08-16 04:17] LABS: Basophils % 0.1 %; Eosinophils # 0.1 10^3/uL (0.0-0.8); Eosinophils % 0.3 %; Hematocrit 30.9 % (36-47); Lymphocytes # 2.6 10^3/uL (0.8-4.8); Lymphocytes % 14.1 %; Mean Corpuscular HGB Conc 32.4 g/dL (30-55); Mean Corpuscular Hemoglobin 26.5 pg (27-33); Mean Corpuscular Volume 81.7 fl (85-98); Mean Platelet Volume 9.9 fL (7.4-10.4); Monocytes # 0.9 10^3/uL (0.2-0.9); Monocytes % 5.1 %; Neutrophils # 14.51 10^3/uL (1.8-7.7); Neutrophils % 79.4 %; Nucleated Red Blood Cells % 0 %; Platelet Count 225 10^3/cmm (157-399); Red Blood Count 3.78 10^6/uL (3.85-5.65); White Blood Count 18.27 10^3/uL (3.29-11.43)
[2023-08-16] MEDS: measles,mumps,rubella pf Vial (w/diluent) 0.5 ML SUBCUT (07:50)
[2023-08-16] MEDS: ibuprofen 800 mg tablet PO (07:51)
[2023-08-16 10:00] VITALS: BP 110/87; PULSE 75; TEMP 36.7; O2SAT 98
--- NOTE | 2023-08-18 10:56 | ANE.PACU2 ---
Inpatient post-anesthesia follow up: Airway intact: Yes Vital signs: Temperature 98.1 F Pulse Rate 75 Respiratory Rate 16 Blood Pressure 110/87 Pulse Oximetry 98 Oxygen Delivery Me thod Room Air Oxygen Flow Rate Fraction of Inspir ed Oxygen Hydration adequate: Yes Nausea and vomiting: No Pain level: 2 Mental status: Baseline
== END 2023-08-16 10:00 | disposition home or self-care (01) | DRG 807 ==
LOC: OPOB 15:01 → OBGYN 15:01
PROVIDERS: Admitting Provider Family Medicine; PCP Family Medicine; Visit Provider Family Medicine
DX: O48.0 Post-term pregnancy (principal); Z37.0 Single live birth; Z3A.41 41 weeks gestation of pregnancy; O14.94 Unspecified pre-eclampsia, complicating childbirth; O69.81X0 Labor and delivery complicated by cord around neck, without compression, not applicable or unspecified; O77.0 Labor and delivery complicated by meconium in amniotic fluid; O70.1 Second degree perineal laceration during delivery
CPT/HCPCS: 36415; 51702; 59025; 59409; 80053; 81001; 82570; 84156; 84550; 85025; 90707; 96372; J2590; J2795; J3010; J7120; J7121

== ENCOUNTER → 2024-01-08 19:10 | Outpatient (BNVA) | payer MEDICAID, SELFPAY | PROVIDERS: PCP Family Medicine; Visit Provider Registered Nurse Neonatal Intensive Care | DX: Z20.828 Contact with and (suspected) exposure to other viral communicable diseases (principal); Z20.818 Contact with and (suspected) exposure to other bacterial communicable diseases; Z20.822 Contact with and (suspected) exposure to COVID-19 | CPT/HCPCS: 87400; 87880 ==

== ENCOUNTER 2025-01-02 08:13 | Emergency (ER) | payer MEDICAID, SELFPAY ==
[2025-01-02 08:28] VITALS: BP 123/89; PULSE 106; RESP 16; TEMP 36.9; O2SAT 97; BMI 37.1
--- NOTE | 2025-01-02 09:12 | W.ED.URI ---
HPI - URI/Sore Throat General: Chief Complaint: Upper Respiratory Infection Stated Complaint: coughing up blood Time Seen by Provider: 01/02/25 09:01 History of Present Illness: This patient is a 24 year old presenting with cough for 3 weeks and an episode of minor hemoptysis today. She and her son both had the flu last month and she has continued to have some cough. Otherwise she is better but the streak of blood this morning prompted her ED visit. Related Data Home Medications ?Medication ?Instructions ?Recorded ?Confirmed No Known Home Medications 01/02/25 01/02/25 Allergies Allergy/AdvReac Type Severity Reaction Status Date / Time No Known Allergies Allergy Verified 01/08/24 18:58 [facility] ED PFSH: Medical History Spontaneous vaginal delivery Preeclampsia No significant past medical history Surgical History No significant past surgical history Social History Smoking and tobacco/nicotine status: never used tobacco/nicotine Physical Exam Const: COMMON NORMALS: no acute distress, patient oriented x3, no limitations and alert GENERAL APPEARANCE: cooperative and comfortable HENMT: HEAD & SCALP: normal to inspection FACE & SINUS: normal facial exam Eye: GENERAL EYE: appearance normal, both eyes and all related structures Neck/C-Spine: COMMON NORMALS: supple, no meningeal signs and no JVD Chest: COMMONS NORMALS: normal inspection of the chest Resp: COMMON NORMALS: normal respiratory effort, No use of accessory muscles and clear to auscultation bilaterally AUSCULTATION: clear to auscultation bilaterally Cardio: COMMON NORMALS: no JVD, regular rate, regular rhythm and No murmurs present (Cardio) RATE: regular rate RHYTHM: regular rhythm GI: COMMON NORMALS: Normal to inspection, nondistended, normoactive bowel sounds present, Soft to palpation and non-tender INSPECTION: Yes normal to inspection AUSCULTATION: Yes normoactive bowel sounds PALPATION: Yes Soft to palpation Back/Pelvis: COMMON NORMALS: thoracic and lumbar spine normal to inspection Extremity: COMMON NORMALS: normal to inspection Neuro: COMMON NORMALS: patient oriented x3, moves all extremities, no focal motor deficits and no sensory deficits noted SENSORIUM/ORIENTATION: Yes alert MENINGEAL SIGNS: Yes no meningeal signs Psych: COMMON NORMALS: mental status grossly normal, cooperative and normal affect Skin: COMMON NORMALS: no rashes or lesions noted and turgor normal GENERAL SKIN EXAM: no rashes or lesions noted and turgor normal Course Vital Signs: Vital signs: Vital Signs Temperature 98.4 F 01/02/25 08:28 Pulse Rate 106 H 01/02/25 08:28 Respiratory Rate 16 01/02/25 08:28 Blood Pressure 123/89 01/02/25 08:28 Pulse Oximetry 97 01/02/25 08:28 Oxygen Delivery Me thod Room Air 01/02/25 08:28 MDM - URI/Sore Throat Medical Decision Making Likely a small amount of blood due to irritation from her cough, sinuses - she is asymptomatic now - appears healthy. Discussed management of symptoms and need for outpatient follow up - return precautions. No radiology studies performed this visit Discharge Plan Discharge Patient Disposition: Home Clinical Impression: Upper respiratory infection, Cough with hemoptysis Condition: Stable Prescriptions: No Action No Known Home Medications Discharge Orders: Discharge ED (Routine); Ordered 01/02/25 Ordered By: Jocelyne Bauer Referrals: Mj Jaramillo MD [Primary Care Provider] - Patient Instructions: Opioid Safety, Pain Management Print Language: Romanian Coding Level of Care Code ED Mason Apprentice for Riddhi Harrison
== END 2025-01-02 09:25 | disposition home or self-care (01) ==
PROVIDERS: Emergency Provider Emergency Medicine; PCP Family Medicine
DX: J06.9 Acute upper respiratory infection, unspecified (principal); R04.2 Hemoptysis
CPT/HCPCS: 99282

== ENCOUNTER 2025-06-01 14:30 | Emergency (ER) | payer MEDICAID, SELFPAY ==
--- OUTSIDE RECORDS SUMMARY | 2025-06-01 14:34 | XMS_ITS | Data Portability ---
Author Organization [facility] Paul Tomas [facility], [facility] Address [address] [address] Assessment Encounter Date Assessment Date Assessment LastModified by Organization Details LastModified Time 08/14/2023 08/14/2023 Because of gestational age, and multiple episodes of elevated bps, we are going to send her for induction. She has no further questions and wishes to proceed. Not available 08/22/2023 14:45:26 09/30/2023 09/30/2023 We discussed control options. Not available 12/18/2023 13:49:03 Plan of Treatment Reminders Order Date Submit Date Provider Last Modified By Organization Details Last Modified Time Details Appointments None recorded. Lab urinalysis, dipstick 2024 025 [email or web address] 47 [facility] ([facility]), [address] [place], [address], 19:14:19 culture, urine 2024 025 [facility], [address] [place] [address], [facility] [address] [place], [address], 23:57:49 Referral None recorded. Procedures None recorded. Surgeries None recorded. Imaging None recorded. Medication Orders cephalexin 500 mg capsule 2024 025 [facility] #[id number], [address] [place], [place], [id number], 12:32:12 valacyclovi r 1 gram tablet 2024 025 [email or web address] [facility][id number], [address] [facility], [facility] [address], [place], [address], 11:59:42 clotrimazol e 1 % topical cream 2023 024 [email or web address] [facility] #[id number], [address], [facility], [place], [address], 11:03:47 Patient TargetsNo targets recorded. Patient InstructionsNo instructions recorded. Reason for Referral None Reported. Results Created Date Observation Date Name Description Value Unit Range Abnormal Flag Note LastModifiedBy Organization Detail LastModifiedTime 07/17/2007/20/2023 STREP TOCOC CUS, GROUP B CULTU RE streptococcu s, group B culture SEE NOTE STREP TOCOC CUS, GROUP B CULTU RE Micro Numbe r: [id number] Test Statu s: Final Speci men Sourc e: Vagin al/an orect al Speci men Quali ty: Adequ ate Resul t: No group B Strep tococ cus isola leandro Note per CDC guide lines optim al recov karly is achie jelena by swabb ing both the lower vagin a and rectu m (thro ugh the anal sphin cter) . Not Available [facility] [address] , [place], [address], 07/20/2023 07:24:02 05/23/2005/24/2025 CULTU RE, URINE , ROUTI NE culture, urine, routine SEE NOTE CULTU RE, URINE , ROUTI NE Micro Numbe r: [id number] Test Statu s: Final Speci men Sourc e: Urine , clean catch Speci men Quali ty: Adequ ate Resul t: Mixed genit al debby isola leandro. These super ficia l bacte kamila are not indic ative of a urina ry tract infec tion. No furth er organ ism ident ifica tion is paramjit ntadia on this speci men. If clini jaguar indic ated, recol lect clean -catc h, mid-s tream urine and trans ariella immed iatel y to Urine Cultu re Trans port Tube. Not Available [facility] [address] [place], [address], 05/24/2025 23:57:48 05/23/20 25 05/23/2025 urina lysis , dipst ick Leukocytes Small Not Available [facility] [address] [place] [address], [address], 05/23/2025 11:50:50 05/23/20 25 05/23/2025 urina lysis , dipst ick Nitrite negati ve Not Available [facility] ([facility]) [address] [place] [address], [address], 05/23/2025 11:50:50 05/23/20 25 05/23/2025 urina lysis , dipst ick Urobilinogen .2 Not Available [facility] ([facility]) [address] [place] [address], [address], 05/23/2025 11:50:50 05/23/20 25 05/23/2025 urina lysis , dipst ick Protein 30 Not Available [facility] ([facility]) [address] [place] [address], [address], 05/23/2025 11:50:50 05/23/20 25 05/23/2025 urina lysis , dipst ick pH 5.5 Not Available [facility] ([facility]) [address] [place] [address], [address], 05/23/2025 11:50:50 05/23/20 25 05/23/2025 urina lysis , dipst ick Blood Negati ve Not Available [facility] ([facility]) [address] [place], [address], 05/23/2025 11:50:50 05/23/20 25 05/23/2025 urina lysis , dipst ick Specific [place] 1.030 Not Available [facility] ( [facility]) [address] [place], [address], 05/23/2025 11:50:50 05/23/20 25 05/23/2025 urina lysis , dipst ick Ketone Small Not Available [facility] ([facility]) [address] [place], [address], 05/23/2025 11:50:50 05/23/20 25 05/23/2025 urina lysis , dipst ick Bilirubin Small Not Available [facility] ([facility]) [address] [place], [address], 05/23/2025 11:50:50 05/23/20 25 05/23/2025 urina lysis , dipst ick Glucose Negati ve Not Available [facility] ([facility]) [address] [place], [address], 05/23/2025 11:50:50 05/23/20 25 05/23/2025 urina lysis , dipst ick Appearance Slight ly Cloudy Not Available [facility] ([facility]) [address] [place], [address], 05/23/2025 11:50:50 05/23/20 25 05/23/2025 urina lysis , dipst ick Color Dark Yellow Not Available [facility] ([facility]) [address] [place], [address], 05/23/2025 11:50:50 Result Notes None recorded. Problems Name Problem SNOMED Code Status Onset Date Resolution Date Notes Provider Name and Address Organization Details Recorded Time Candidia sis of skin 32471882 Completed 202302/16/2025 MIGUEL WHITTEN [facility] 5 17:02:12 Genital herpes simplex 70268658 Active 2024 MIGUEL WHITTEN [facility] 5 17:02:30 Acute urinary tract infectio n 397949239 Active 2024 Rupert Wood DO [address] [place], [address] , [facility] 5 12:40:23 Normal pregnanc y in primigra ivory 59896394814 4103 Completed 202202/16/2025 MIGUEL thomas [facility] 5 17:02:21 Herpes in pregnanc y 903927515 Active Treat with acyclovi r last month of pregnanc y MIGUEL WHITTEN [facility] 5 17:02:18 Herpes in pregnanc y 930819880 Completed Treat with acyclovi r last month of pregnanc y EMMA CLARK [facility] 3 15:48:03 Anemia of pregnanc y 77603021 Completed 2022 EMMA CURRAN [facility] 3 15:48:03 Anemia of pregnanc y 07388223 Completed 202202/16/2025 MIGUEL WHITTEN [facility] 5 17:02:05 Problem Notes None recorded. Procedures Surgical History Date Name Laterality Status Provider Name and Address Organization Details Recorded Time 07/03/20 jr skin tag removal completed Mj Jaramillo MD [address] [place] [address], [address], [facility] 07/03/2023 21:02:03 03/12/20 23 Date of Last Pap Smear [facility] 03/01/2025 08:57:32 03/12/20 23 sampling of cervix for Papanicolaou [facility] 08:57:57 Imaging Results None recorded. Procedure Notes None recorded. Medical Equipment None Reported. Allergies No known drug allergies Medications Name Sig Start Date Stop Date Status Note LastModified by Organization Details LastModified Time cetirizine 10 mg tablet TAKE 1 TABLET BY MOUTH DAILY NEEDED FOR ALLERGY SYMPTOMS 02/16 completed Not Available Not Available Not Available fluconazole 150 mg tablet TAKE 1 TABLET BY MOUTH 09/30 completed Not Available Not Available Not Available valacyclovi r 1 gram tablet TAKE 1 TABLET BY MOUTH THREE TIMES A DAY FOR 7 DAYS 05/23 completed Not Available Not Available Not Available clotrimazol e 1 % vaginal cream INSERT 1 APPLICATO RFUL VAGINALLY ONCE DAILY 02/25 completed Not Available Not Available Not Available metronidazo le 500 mg tablet TAKE 1 TABLET BY MOUTH TWICE A DAY FOR 7 DAYS 04/04 completed Not Available Not Available Not Available valacyclovi r 500 mg tablet TAKE 1 TABLET BY MOUTH TWICE A DAY 09/30 completed vo JR/tn Not Available Not Available Not Available acyclovir 800 mg tablet TAKE 1 TABLET BY MOUTH TWICE A DAY FOR 5 DAYS 05/07 completed Not Available Not Available Not Available cephalexin 500 mg capsule Take 1 capsule 3 times a day by oral route for 7 days. 2024 active Not Available Not Available Not Avai lable ferrous sulfate 325 mg (65 mg iron) tablet TAKE 1 TABLET BY MOUTH EVERY DAY 09/30 completed Not Available Not Available Not Available clotrimazol e 1 % topical cream APPLY TO THE AFFECTED AND SURROUNDI NG AREAS OF SKIN BY TOPICAL ROUTE 2 TIMES PER DAY IN THE MORNING AND EVENING 02/16 completed Not Available Not Available Not Available Vitamins 1 qd 05/07 completed Not Available Not Available Not Available M-Randee Plus 27 mg iron-1 mg tablet TAKE 1 TABLET BY MOUTH EVERY DAY 02/16 completed Not Available Not Available Not Available Vitals Date Recorded Body height Body mass index (BMI) Body weight Heart rate Oxygen saturation Oxygen saturation in Arterial blood by Pulse oximetry Body temperature Respiratory rate Provider Name and Address Organization Details Last Updated DateTime 4 168.28 cm 36.8 kg/m2 625704. 25 g 87 /min 99 % 99 % 96.8 [degF] 20 /min Oneyda Choe [facility] 4 13:43:52 Date Recorded Body height Body mass index (BMI) Body weight Oxygen saturation Oxygen saturation in Arterial blood by Pulse oximetry Heart rate Respiratory rate Body temperature Systolic And Diastolic Provider Name and Address Organization Details Last Updated DateTime 5 168.28 cm 39.7 kg/m2 584244. 91 g 98 % 98 % 86 /min 16 /min 98.5 [degF] 128/74 mm[Hg] Sara Saunders [facility] 5 11:05:52 Date Recorded Body height Body mass index (BMI) Body weight Oxygen saturation Oxygen saturation in Arterial blood by Pulse oximetry Heart rate Body temperature Systolic And Diastolic Provider Name and Address Organization Details Last Updated DateTime 5 168.28 cm 37 kg/m2 689202. 84 g 98 % 98 % 78 /min 98.4 [degF] 140/90 mm[Hg] Miri Giordano [facility] 5 12:03:27 Date Recorded Body height Body mass index (BMI) Body weight Oxygen saturation Oxygen saturation in Arterial blood by Pulse oximetry Heart rate Respiratory rate Body temperature Systolic And Diastolic Provider Name and Address Organization Details Last Updated DateTime 3 168.28 cm 37.5 kg/m2 432124. 65051 g 98 % 98 % 116 /min 20 /min 98.6 [degF] 152/84 mm[Hg] EMMA CLARK [facility] 3 11:57:04 Date Recorded Body height Body weight Oxygen saturation Oxygen saturation in Arterial blood by Pulse oximetry Heart rate Respiratory rate Body temperature Systolic And Diastolic Provider Name and Address Organization Details Last Updated DateTime 3 168.28 cm 179351. 59463 g 98 % 98 % 92 /min 18 /min 98.4 [degF] 122/80 mm[Hg] EMMA CURRAN [facility] 3 15:46:09 Social History Question Answer Notes LastModified by Zipari Details LastModified Time Tobacco Smoking Status Former Smoker Sara Saunders william, [facility] 02/16/2025 11:03:57 If You Are , What Was Your Level Of Alcohol Consumption Prior To ? None Information not available 02/25/2023 What Was The Date Of Your Most Recent Tobacco Screening? 05/23/2025 [email or web address] Information not available 05/23/2025 What Is Your Relationship Status? Single Information not available 02/25/2023 Are You Sexually Active? Yes Information not available 02/25/2023 Have You Recently Traveled Abroad? No Information not available 02/25/2023 Sex: Unknown Functional Status Question Answer Note LastModified by Zipari Details LastModified Time Do you use any illicit or recreational drugs? No Information not available 02/25/2023 Do you or have you ever used any other forms of tobacco or nicotine? No Information not available 02/25/2023 What is your level of alcohol consumption? Occasional Information not available 02/25/2023 Are you able to care for yourself? Yes Information n ot available 02/25/2023 Mental Status None recorded. Family History Relationship Description Onset Age of this Age Resolved Age Notes LastModified by Organization Details LastModified Time Mother Diabetes mellitus Not available 2022 09:51:35 Medical History No medical history recorded. Gynecological History Statement/Question Response Abnormal Pap N Date of Last Pap Smear 03/12/2023 Obstetrics History GPAL:G 1 P 1 0 0 0 Type Value Full Term 1 Total 1 Immunizations Vaccine Type Date Status Note Provider Nam e and Address Organization Details Recorded Time Tdap 3 completed EMMA PEREZ null, [facility] 06/09/2023 10:46:53 Hib, unspecified formulation 2 completed MIGUEL WHITTEN null, [facility] 04/23/2023 11:56:00 Hib, unspecified formulation 5 completed MIGUEL COLEY null, [facility] 04/23/2023 11:56:00 Hib, unspecified formulation 1 completed MIGUEL WHITTEN null, [facility] 04/23/2023 11:56:00 Hib, unspecified formulation 1 completed MIGUEL WHITTEN null, [facility] 04/23/2023 11:56:00 HPV9 6 completed MIGUEL WHITTEN null, [facility] 04/23/2023 11:56:00 Influenza, MDCK, quadrivalent, PF 2 completed MIGUEL WHITTEN null, [facility] 04/23/2023 11:56:00 MMR 2 completed MIGUEL WHITTEN null, [facility] 04/23/2023 11:56:00 MMR 5 completed MIGUEL WHITTEN null, [facility] 04/23/2023 11:56:00 Tdap 3 completed MIGUEL WHITTEN null, [facility] 04/23/2023 11:56:00 varicella 2 completed MIGUEL WHITTEN null, [facility] 04/23/2023 11:56:00 Hep B, unspecified formulation 2 completed MIGUEL WHITTEN null, [facility] 04/23/2023 11:56:00 Hep B, unspecified formulation 1 completed MIGUEL MARIA DOLORES null, [facility] 04/23/2023 11:56:00 Hep B, unspecified formulation 1 completed MIGUELJOHN COLEY null, [facility] 04/23/2023 11:56:00 polio, unspecified formulation 5 completed MIGUEL MARIA DOLORES null, [facility] 04/23/2023 11:56:01 polio, unspecified formulation 1 completed MIGUELJOHN COLEY null, [facility] 04/23/2023 11:56:01 polio, unspecified formulation 1 completed MIGUEL COLEY null, [facility] 04/23/2023 11:56:01 meningococcal MCV4P 6 completed MIGUEL COLEY null, [facility] 04/23/2023 11:56:01 DTaP 2 completed MIGUEL COLEY null, [facility] 04/23/2023 11:56:01 DTaP 5 completed MIGUEL COLEY null, [facility] 04/23/2023 11:56:01 DTaP 1 completed MIGUELJOHN COLEY null, [facility] 04/23/2023 11:56:01 DTaP 1 completed MIGUELJOHN COLEY null, [facility] 04/23/2023 11:56:01 Influenza, split virus, quadrivalent, PF 7 completed MIGUELJOHN COLEY null, [facility] 04/23/2023 11:56:01 Hep A, unspecified formulation 5 completed MIGUEL thomas, [facility] 04/23/2023 11:56:01 Hep A, unspecified formulation 6 completed MIGUEL thomas, [facility] 04/23/2023 11:56:01 Past Encounters Encounter ID Performer Location Encounter Start Date Encounter Closed Date Diagnosis/Indication Diagnosis SNOMED-CT Code Diagnosis ICD10 Code Diagnosis Note [id number] Mj Jaramillo MD [facility] ([facility]) [address] [place] [id number] 5 02/25/2023 09:27:26 04/13/2023 07:24:42 Normal in primigravida 2967196914 23646 Z34.02 She will talk to her partner about getting treated for trichomona s. Gestation period, 16 weeks 91101225 Z3A.16 [id number] Mj Jaramillo MD [facility] ([facility]) [address] [place] [id number] 5 03/12/2023 10:29:22 03/24/2023 15:22:16 Normal in primigravida 9649787910 39835 Z34.02 She will talk to her partner about getting treated for trichomona s. Gestation period, 18 weeks 08316142 Z3A.18 Candidiasis of vagina 72 828328 B37.31 [id number] Mj Jaramillo MD [facility] ([facility]) [address] [place] [id number] 5 03/27/2023 10:17:34 03/27/2023 10:57:10 [id number] Mj Jaramillo MD [facility] ([facility]) [address] [place] [id number] 5 04/04/2023 16:57:34 04/04/2023 20:14:40 Normal in primigravida 7349622617 88252 Z34.02 Gestation period, 22 weeks 83299403 Z3A.22 [id number] Mj Jaramillo MD [facility] ([facility]) [address] [place] [id number] 5 04/23/2023 11:19:46 04/23/2023 13:39:38 Normal in primigravida 7806875651 63888 Z34.02 Gestation period, 24 weeks 237788406 Z3A.24 Urinary tr act infection in 729524022 O23.42 [id number] Mj Jaramillo MD [facility] ([facility]) [address] [place] [id number] 5 05/07/2023 11:54:19 05/10/2023 14:42:22 Normal in primigravida 8032497752 47875 Z34.02 Vaginal discharge 951668 006 N89.8 She will treat with OTC Monistat. Gestation period, 26 weeks 49525595 Z3A.26 [id number] Mj Jaramillo MD [facility] ([facility]) [address] [place] [id number] 5 05/14/2023 16:38:41 05/26/2023 08:40:34 33821429 Z33.1 Gestation period, 27 weeks 64092207 Z3A.27 [id number] Mj Jaramillo MD [facility] ([facility]) [address] [place] [id number] 5 05/28/2023 11:50:21 05/28/2023 16:52:02 30901117 Z33.1 Gestation period, 29 weeks 59499239 Z3A.29 Uterine si ze for dates discrepancy 057694897 O26.849 Candidiasis of vagina 72 668512 B37.31 [id number] Mj Jaramillo MD [facility] ([facility]) [address] [place] [id number] 5 06/05/2023 09:35:00 06/05/2023 14:08:16 [id number] Mj Jaramillo MD [facility] ([facility]) [address] [place] [id number] 5 06/09/2023 10:01:44 06/09/2023 13:17:24 63098031 Z33.1 Normal pre gnancy in primigravida 9527912789 85434 Z34.03 Gestation period, 31 weeks 35380478 Z3A.31 [id number] Mj Jaramillo MD [facility] ([facility]) [address] [place] [id number] 5 06/26/2023 10:53:00 06/26/2023 12:04:38 Normal in primigravida 5154710528 85255 Z34.03 Gestation period, 33 weeks 24556133 Z3A.33 Skin lesion 44776790 L98 .9 [id number] Mj Jaramillo MD [facility] ([facility]) [address] [place] [id number] 5 07/03/2023 15:29:05 07/10/2023 11:40:47 Skin lesion 51452841 L98.9 Skin tag 915271532 L91.8 [id number] Mj Jaramillo MD [facility] ([facility]) [address] [place] [id number] 5 07/09/2023 14:56:18 07/09/2023 18:19:51 [id number] Mj Jaramillo MD [facility] ([facility]) [address] [place] [id number] 5 07/17/2023 14:46:32 07/17/2023 16:59:27 Gestation period, 36 weeks 56028941 Z3A.36 Normal pre gnancy in primigravida 4250388329 22191 Z34.03 History of sexually transmitted disease 442425631 Z86.19 [id number] Mj Jaramillo MD [facility] ([facility]) [address] [place] [id number] 5 07/24/2023 10:51:09 07/24/2023 13:52:38 Normal in primigravida 0249405738 86986 Z34.03 Gestation period, 37 weeks 69250197 Z3A.37 [id number] Mj Jaramillo MD [facility] ([facility]) [address] [place] [id number] 5 07/31/2023 11:55:17 08/08/2023 18:31:51 Normal in primigravida 3606713168 25081 Z34.03 Normal 0853318 2 Z34.03 Gestation period, 38 weeks 51902047 Z3A.38 [id number] Mj Jaramillo MD [facility] ([facility]) [address] [place] [address] [id number] 5 08/07/2023 14:52:56 08/13/2023 22:35:21 Normal in primigravida 4918714790 82340 Z34.03 Gestation period, 39 weeks 69625095 Z3A.39 [id number] Mj Jaramillo MD [facility] ([facility]) [address] [place] [id number] 5 08/11/2023 08:53:42 08/11/2023 10:22:04 Normal in primigravida 4081142271 77378 Z34.03 Gestation period, 40 weeks 66623287 Z3A.40 [id number] Mj Jaramillo MD [facility]) [address] [place] [address] [id number] 5 08/14/2023 11:44:36 08/14/2023 17:24:26 Normal in primigravida 0603109481 46088 Z34.03 Gestation period, 40 weeks 30550696 Z3A.40 [id number] Mj Jaramillo MD [facility] ([facility]) [address] [place] [id number] 5 09/30/2023 15:07:27 12/22/2023 10:24:17 care 027762819 Z39.2 [id number] Albert Siegel MD [facility] ([facility]) [address] [place] [address] [id number] 5 01/22/2024 13:20:25 01/22/2024 14:33:54 Candidiasis of skin 82040700 B37.2 Exam is consistent with candidiasi s. The patient is currently breast-fee ding and the has an appointmen t with PCP today. Will treat mom with clotrimazo le. Encouraged twice daily usage of the medication and encouraged to continue breast-fee ding. Recommend maintainin g appointmen t for for evaluation and possible treatment for thrush. [id number] JOSEY PURVIS [facility] ([facility]) [address] [place] [address] 02/16/2025 10:55:47 02/16/2025 11:26:42 Genital herpes simplex 93623120 A60.9 Complete course of medication . Schedule follow up with PCP. [id number] Rupert Wood DO [facility] ([facility]) [address] [place] [address] 05/23/2025 11:49:18 05/23/2025 12:43:26 Dysuria 92900239 R30.0 Acute urin chasity tract infection 940323318 N39.0 I reviewed UA results and discussed with pt. We will start antibiotic s. Pt will increase oral fluids and can use cranberry. Return to office with no improvemen t or any problems. Go to ER with severe worsening or severe problems.W e will obtain urine culture Health Concerns Section Related Observation LastModified by Organization Detai ls LastModified Time None Recorded Concern Status LastModified by Organization Details LastModified Time None Recorded Advance Directives Directive None Recorded Payers Insurance Date Sequence Insurance Name Policy Number Policy Osman Covered Member ID Osman Member ID Guarantor Name 02/10/2024 1 UNSPECIFIED REMIT PAYOR Diane Mascorro 05/24/2025 [place] [facility] Diane Mascorro [id number] Diane Mascorro 05/25/2025 1 [facility] [place] [facility] Diane Lebronper [id number] Diane Mascorro 05/24/2025 [place] Diane Oden Mascorro [id number] Diane Mascorro Notes Date Note Type Note Provider Name and Address Organization Details Recorded Time 08/14/2023 text/html jr ob routineRep orted bypatient.Associated Symptoms:no abdominal pain; normal movement; no bleeding; no vaginal/vulvar itching or irritation; no dysuria; no frequency; no hematuria; no fever; no nausea; no emesis; no constipation; no diarrhea/loose stool; no visual changes; no headache; no dizziness;cramping;co ntractions;vaginal discharge;edema;breat hlessnessNotes:vagina l pressureDenies tobacco or nicotine use, denies alcohol use, denies drug use or exposure Mj Jaramillo MD [address] [place], [address], [facility], [facility]. 08/22/2023 14:45:36 09/30/2023 text/html VisitReported bypatient.Onset/Timin g:date of delivery: (08/15/23) Quality: Context:no complications Associated Symptoms:no abnormal bleeding; no vaginal discharge; no pelvic pain; no constipation; no dysuria; no fever; no problems; no mastitis; normal mood Contraception Plan:declines contraception Mj Jaramillo MD [address] [place], [address], [facility], [place]. 12/18/2023 13:49:17 01/22/2024 text/html General Rash/Ski n LesionReported bypatient.Location:ot her: (Breasts) Quality:itchy;red;sti nging;tenderness Severity:mild Duration:has noted for 2-3 weeks Onset/Timing:gradual onset Context:no one else with similar rash;scratching Aggravating factors:clothing Associated Symptoms:no fever; no nausea; no vomiting Albert Siegel MD [address] [place], [address], [facility], [place] 01/25/2024 10:11:06 02/16/2025 text/html walk in patientpatient is here today for a herpes out break, patient has had herpes sense she was around 19 years old. This is her 4 th outbreak in 17 months. JOSEY PURVIS [address] [place], [address], [facility], [place]. 02/16/2025 11:23:42 05/23/2025 text/html walk inx1 days frequency, burning also thinks herpes maybe starting to flare.she gets occasional UTIs, and this will typically cause a herpes flair. wanting to get a head start on it. symptoms are typical for her.no fevers, chills, n/v/d. Rupert Wood DO [address] [place], [address], [facility] 05/23/2025 12:40:41 OBGyn Episode Ob Episode Information Episode Created Date Number of Fetuses Patient Bloodtype Patient rh Status Prepregnancy Weight lbs Domestic Partner Domestic Partner Phone Father Name Sack Maker Status 02/26/20 23 1 O Positive CLOSED Fetus Data First Name Last Name Admitted to NICU Weight (g) Sex Living Outcome Pediatric Complications Fetus ID Race Codes Race Delivery Type Ennxo true 3572.03 7 M Full Term meconium aspiration 346 VAGINAL Problems Problem Notes Problem Name Start Date End Date Resolution Snomed Code Not e Herpes in 201256005 Treat with acyclovir last month of Anemia of 03/25/2023 [id number] Nick Calculation Initial Nick Date Initial Exam Date Initial Exam Provider Initial Ultrasound Date Last Menstrual Period Date Ultra Sound Weeks Gestation 08/08/2023 02/25/2023 01/10/2023 11/01/2022 10 Eighteen To Twenty Week Nick Update Ultra Sound Date Fundal Height At Umbil Quickening Date Ultra Sound Latest Weeks Gestation Final Nick Confirmed By Final Nick Confirmed Date Final Nick Date Ultra Sound Latest Days Gestation 0 08/08/20 23 0 Pre- Flowsheet Flowsheet Date 02/25/2023 Cummins Score Blood Edema Fundus Height Fundus Units Glucose Ketones Leukocytes Nitrite Labor Signs Protein Cervic Dilation Cervic Effacement Cervic Station Type Weight in lbs Pre/Post Dialysis Refused Weight 206.457846988394 BP Diastolic BP Location Tested BP Systolic BP Type 58 116 Fetus Heart Rate Present A 164 Present Fetus Movement A No Comments OBI Flowsheet Date 03/12/2023 Cummins Score Blood Edema Fundus Height Fundus Units Glucose Ketones Leukocytes Nitrite Labor Signs Protein Cervic Dilation Cervic Effacement Cervic Station Other (see comments ) Type Weight in lbs Pre/Post Dialysis Refused Weight 207.35990052273 BP Diastolic BP Location Tested BP Systolic BP Type 62 124 Fetus Heart Rate Present A 156 Present Fetus Movement A No Comments NOB- vaginal discharge, pelv ic pressure, back pain, pelvic pain Flowsheet Date 03/27/2023 Cummins Score Blood Edema Fundus Height Fundus Units Glucose Ketones Leukocytes Nitrite Labor Signs Protein Cervic Dilation Cervic Effacement Cervic Station Type Weight in lbs Pre/Post Dialysis Refused BP Diastolic BP Location Tested BP Systolic BP Type Fetus Heart Rate Present Fetus Movement Comments Flowsheet Date 03/31/2023 Cummins Score Blood Edema Fundus Height Fundus Units Glucose Ketones Leukocytes Nitrite Labor Signs Protein Cervic Dilation Cervic Effacement Cervic Station Type Weight in lbs Pre/Post Dialysis Refused BP Diastolic BP Location Tested BP Systolic BP Type Fetus Heart Rate Present Fetus Movement Comments U/S of 03/27/23 vertex positio n, placenta is anterior grade 0, normal AFV, FHT- 152, EGA-21.0, EDC-08/07/23 Flowsheet Date 04/04/2023 Cummins Score Blood Edema Fundus Height Fundus Units Glucose Ketones Leukocytes Nitrite Labor Signs Protein Cervic Dilation Cervic Effacement Cervic Station 22 cm none 1+ Other (see comments ) trace Type Weight in lbs Pre/Post Dialysis Refused Weight 214.587602470644 BP Diastolic BP Location Tested BP Systolic BP Type 66 138 Fetus Heart Rate Present A 160 Present Fetus Movement A Yes Comments pelvic pain with prolonged b ending Flowsheet Date 04/04/2023 Cummins Score Blood Edema Fundus Height Fundus Units Glucose Ketones Leukocytes Nitrite Labor Signs Protein Cervic Dilation Cervic Effacement Cervic Station Type Weight in lbs Pre/Post Dialysis Refused BP Diastolic BP Location Tested BP Systolic BP Type Fetus Heart Rate Present Fetus Movement Comments RA completed for [facility] Flowsheet Date 04/23/2023 Cummins Score Blood Edema Fundus Height Fundus Units Glucose Ketones Leukocytes Nitrite Labor Signs Protein Cervic Dilation Cervic Effacement Cervic Station none 2+ trace Type Weight in lbs Pre/Post Dialysis Refused Weight 219.041487014600 BP Diastolic BP Location Tested BP Systolic BP Type 76 134 Fetus Heart Rate Present A 152 Present Fetus Movement A Yes Comments back pain- improved/ swellin g in hands Flowsheet Date 05/07/2023 Cummins Score Blood Edema Fundus Height Fundus Units Glucose Ketones Leukocytes Nitrite Labor Signs Protein Cervic Dilation Cervic Effacement Cervic Station none 1+ trace Type Weight in lbs Pre/Post Dialysis Refused Weight 218.756742751379 BP Diastolic BP Location Tested BP Systolic BP Type 70 128 Fetus Heart Rate Present A 148 Present Fetus Movement A Yes Comments vaginal discharge Flowsheet Date 05/07/2023 Cummins Score Blood Edema Fundus Height Fundus Units Glucose Ketones Leukocytes Nitrite Labor Signs Protein Cervic Dilation Cervic Effacement Cervic Station 28 cm Type Weight in lbs Pre/Post Dialysis Refused Weight 218.473768760207 BP Diastolic BP Location Tested BP Systolic BP Type Fetus Heart Rate Present Fetus Movement Comments Flowsheet Date 05/14/2023 Cummins Score Blood Edema Fundus Height Fundus Units Glucose Ketones Leukocytes Nitrite Labor Signs Protein Cervic Dilation Cervic Effacement Cervic Station none 1+ Negative trace Type Weight in lbs Pre/Post Dialysis Refused Weight 221.524063410231 BP Diastolic BP Location Tested BP Systolic BP Type 74 R arm 138 sitting Fetus Heart Rate Present A 156 Present Fetus Movement A Yes Comments occ cramping, edema to hands , back pain, shortness of breath Flowsheet Date 05/28/2023 Cummins Score Blood Edema Fundus Height Fundus Units Glucose Ketones Leukocytes Nitrite Labor Signs Protein Cervic Dilation Cervic Effacement Cervic Station 33 wks none 1+ Negative trace Type Weight in lbs Pre/Post Dialysis Refused Weight 222.835186278202 BP Diastolic BP Location Tested BP Systolic BP Type 72 L leg 134 sitting Fetus Heart Rate Present A 156 Present Fetus Movement A Yes Comments constipation, edema to hands , low back pain, vaginal irritation, script given for TDap Flowsheet Date 06/05/2023 Cummins Score Blood Edema Fundus Height Fundus Units Glucose Ketones Leukocytes Nitrite Labor Signs Protein Cervic Dilation Cervic Effacement Cervic Station Type Weight in lbs Pre/Post Dialysis Refused BP Diastolic BP Location Tested BP Systolic BP Type Fetus Heart Rate Present Fetus Movement Comments Flowsheet Date 06/09/2023 Cummins Score Blood Edema Fundus Height Fundus Units Glucose Ketones Leukocytes Nitrite Labor Signs Protein Cervic Dilation Cervic Effacement Cervic Station 32 cm none trace trace Type Weight in lbs Pre/Post Dialysis Refused Weight 226.53431991030 BP Diastolic BP Location Tested BP Systolic BP Type 74 R arm 132 sitting Fetus Heart Rate Present A 156 Fetus Movement A Yes Comments edema to hands, constipation , TDap today Flowsheet Date 06/10/2023 Cummins Score Blood Edema Fundus Height Fundus Units Glucose Ketones Leukocytes Nitrite Labor Signs Protein Cervic Dilation Cervic Effacement Cervic Station Type Weight in lbs Pre/Post Dialysis Refused BP Diastolic BP Location Tested BP Systolic BP Type Fetus Heart Rate Present Fetus Movement Comments u/s on 06/05/23, NICK 08/08/23, EGA 30.6, BRIDGET 17.50, vertex presentation Flowsheet Date 06/26/2023 Cummins Score Blood Edema Fundus Height Fundus Units Glucose Ketones Leukocytes Nitrite Labor Signs Protein Cervic Dilation Cervic Effacement Cervic Station none none Negative trace Type Weight in lbs Pre/Post Dialysis Refused Weight 232.647696859403 BP Diastolic BP Location Tested BP Systolic BP Type 76 R arm 138 sitting Fetus Heart Rate Present A 150 Present Fetus Movement A Yes Comments occ mild cramping, edema to hands, constipation, Mole removal Flowsheet Date 07/03/2023 Cummins Score Blood Edema Fundus Height Fundus Units Glucose Ketones Leukocytes Nitrite Labor Signs Protein Cervic Dilation Cervic Effacement Cervic Station Type Weight in lbs Pre/Post Dialysis Refused Weight 229.015174962987 BP Diastolic BP Location Tested BP Systolic BP Type 76 L arm 118 sitting Fetus Heart Rate Present Fetus Movement Comments Flowsheet Date 07/09/2023 Cummins Score Blood Edema Fundus Height Fundus Units Glucose Ketones Leukocytes Nitrite Labor Signs Protein Cervic Dilation Cervic Effacement Cervic Station Type Weight in lbs Pre/Post Dialysis Refused BP Diastolic BP Location Tested BP Systolic BP Type Fetus Heart Rate Present Fetus Movement Comments Flowsheet Date 07/17/2023 Cummins Score Blood Edema Fundus Height Fundus Units Glucose Ketones Leukocytes Nitrite Labor Signs Protein Cervic Dilation Cervic Effacement Cervic Station 38 cm none 2+ trace Type Weight in lbs Pre/Post Dialysis Refused Weight 232.60874031016 BP Diastolic BP Location Tested BP Systolic BP Type 72 L arm 132 sitting Fetus Heart Rate Present A 164 Present Fetus Movement A Yes Comments swelling and back pain Flowsheet Date 07/22/2023 Cummins Score Blood Edema Fundus Height Fundus Units Glucose Ketones Leukocytes Nitrite Labor Signs Protein Cervic Dilation Cervic Effacement Cervic Station Type Weight in lbs Pre/Post Dialysis Refused BP Diastolic BP Location Tested BP Systolic BP Type Fetus Heart Rate Present Fetus Movement Comments GrpB Negative. OB records fa xed. Flowsheet Date 07/24/2023 Cummins Score Blood Edema Fundus Height Fundus Units Glucose Ketones Leukocytes Nitrite Labor Signs Protein Cervic Dilation Cervic Effacement Cervic Station none 1+ [place] trace Type Weight in lbs Pre/Post Dialysis Refused Weight 234.470258502535 BP Diastolic BP Location Tested BP Systolic BP Type 82 L arm 134 sitting Fetus Heart Rate Present A 156 Present Fetus Movement A Yes Comments pelvic pain and pressure, cr amps Flowsheet Date 07/31/2023 Cummins Score Blood Edema Fundus Height Fundus Units Glucose Ketones Leukocytes Nitrite Labor Signs Protein Cervic Dilation Cervic Effacement Cervic Station 39 cm none 1+ Negative Oniel [place] trace 1cm 10% -4 Type Weight in lbs Pre/Post Dialysis Refused Weight 234.453083668593 BP Diastolic BP Location Tested BP Systolic BP Type 80 140 sitting Fetus Heart Rate Present Fetus Movement Comments edema hands/legs, right hand numbness, low back pain pelvic/vag pressure Flowsheet Date 08/07/2023 Cummins Score Blood Edema Fundus Height Fundus Units Glucose Ketones Leukocytes Nitrite Labor Signs Protein Cervic Dilation Cervic Effacement Cervic Station 40 none trace Negative [place] trace 1cm 30% -4 Type Weight in lbs Pre/Post Dialysis Refused Weight 236.73521924190 BP Diastolic BP Location Tested BP Systolic BP Type 72 140 sitting Fetus Heart Rate Present A 140 Present Fetus Movement A Yes Comments vaginal pressure, discharge, sob, edema to feet, low back pain, pelvic pain/pressure Flowsheet Date 08/11/2023 Cummins Score Blood Edema Fundus Height Fundus Units Glucose Ketones Leukocytes Nitrite Labor Signs Protein Cervic Dilation Cervic Effacement Cervic Station trace none trace Negative trace 2cm 40% -3 Type Weight in lbs Pre/Post Dialysis Refused Weight 235.959859102910 BP Diastolic BP Location Tested BP Systolic BP Type 78 132 sitting Fetus Heart Rate Present A 142 Present Fetus Movement A Yes Comments coulg, cold, nasal congestio n, edema hands, headache, sob, vaginal pressure Flowsheet Date 08/14/2023 Cummins Score Blood Edema Fundus Height Fundus Units Glucose Ketones Leukocytes Nitrite Labor Signs Protein Cervic Dilation Cervic Effacement Cervic Station none trace Negative [place] trace Type Weight in lbs Pre/Post Dialysis Refused Weight 234.996795428571 BP Diastolic BP Location Tested BP Systolic BP Type 84 152 sitting Fetus Heart Rate Present A 160 Present Fetus Movement A Yes Comments Cramping, vaginal discharge, vaginal pressure, back pain, edema, sob Flowsheet Date 09/30/2023 Cummins Score Blood Edema Fundus Height Fundus Units Glucose Ketones Leukocytes Nitrite Labor Signs Protein Cervic Dilation Cervic Effacement Cervic Station Type Weight in lbs Pre/Post Dialysis Refused Weight 223.738315134948 BP Diastolic BP Location Tested BP Systolic BP Type 80 122 sitting Fetus Heart Rate Present Fetus Movement Comments Flowsheet Date 01/22/2024 Cummins Score Blood Edema Fundus Height Fundus Units Glucose Ketones Leukocytes Nitrite Labor Signs Protein Cervic Dilation Cervic Effacement Cervic Station Type Weight in lbs Pre/Post Dialysis Refused Weight 230.966919970837 BP Diastolic BP Location Tested BP Systolic BP Type Fetus Heart Rate Present Fetus Movement Comments Flowsheet Date 02/16/2025 Cummins Score Blood Edema Fundus Height Fundus Units Glucose Ketones Leukocytes Nitrite Labor Signs Protein Cervic Dilation Cervic Effacement Cervic Station Type Weight in lbs Pre/Post Dialysis Refused Weight 248.747827710817 BP Diastolic BP Location Tested BP Systolic BP Type 74 128 Fetus Heart Rate Present Fetus Movement Comments Menstrual History Last Menstrual Date Menses Monthly On Bcp Conception Prior Menses Frequency Hcg Plus Date Menarche Onset Age 1211/01/2022 Genetic Screening And Infection History Question Response Note Patient's Age Will Be 35 Yea rs Or Older At Estimated Date of Delivery false Thalassemia (Belarusian, Kinyarwanda, Mediterranean, Or Background): MCV < 80 false Neural Tube Defect (Meningom yelocele, Spina Bifida, Or Anencephaly) false Congenital Heart Defect false Down Syndrome false Julio-Sachs (eg, Yarsani, Cajun, Yi-Kyrgyz) f alse Daljit Disease false Sickle Cell Disease Or Trait () false Hemophilia Or Other Blood Disorders false Muscular Dystrophy false Cystic Fibrosis false Mellette's Chorea false Intellectual Disability/Autism false If Yes, Was Person Tested For Fragile X? false Other Inherited Genetic Or C hromosomal Disorder false Maternal Metabolic Disorder (eg, Type 1 Diabetes, PKU) false Patient Or Baby's Father Had A Child With Defects Not Listed Above false Recurrent Loss, Or A Stillbirth false Medications (including Suppl ements, Vitamins, Herbs, OTC Drugs), Illicit/Recreational Drugs, Alcohol true If Yes, Agent(s) And Strength/Dosage false Any Other Genetic History false Live With Someone With TB Or Exposed To TB false Patient Or Partner Has Histo ry Of Genital Herpes false Rash Or Viral Illness Since Last Menstrual Period false History Of STD, Gonorrhea, C hlamydia, HPV, Syphilis true herpes, history, trichomonas . Other Infection History false History of HIV false History of Hepatitis false Prior GBS-infected child false Hemoglobinopathy Or Carrier false Other Structural Defect false Recent Travel History Outside of Country false Mental Retardation/Autism false Delivery Information Delivery Date Delivery Type Labor Anesthesia Weeks Gestation Incision Type Labor Labor Length Hrs Delivered By Post Complications Tubal Sterilization Discharge Date Comments 3 None 41 false Mj Jaramillo MD None Discharge Information Feeding Method Contraceptive Method Maternal HG B and HCT Levels
[2025-06-01 14:59] VITALS: BP 120/64; PULSE 83; TEMP 36.8; O2SAT 100; BMI 37.1
[2025-06-01 15:36] VITALS: BP 139/91; PULSE 94; O2SAT 95
--- NOTE | 2025-06-01 15:39 | ED_ITS ---
HPI - Female Genitourinary General: Chief complaint: Urogenital-Female Stated complaint: bump in vaginal area Time Seen by Provider: 06/01/25 15:07 Source: patient Mode of arrival: ambulatory Limitations: no limitations History of Present Illness: 25yo female presents with concern of a l ump on her left labia. States that she had a really bad yeast infection about a week ago and she does not know if the lump was present at that time or if it is related to it. 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 She reports that the lump is not tender, but she is concerned of possible STD. Patient denies any other concerns at this time. Associated symptoms: Deny vaginal discharge Related Data Home Medications ?Medication ?Instructions ?Recorded ?Confirmed No Known Home Medications 01/02/2508/18 Allergies Allergy/AdvReac Type Severity Reaction Status Date / Time No Known Allergies Allergy Verified 06/01/25 15:04 Review of Systems Const: Denies: fever(s), chills or body aches : Reports: genital lesions (Left labia); Denies: vaginal discharge [facility] ED PFSH: Medical History (Updated 06/01/25 @ 15:38 by JOSEY Hudson) Spontaneous vaginal delivery Preeclampsia No significant past medical history Surgical History No significant past surgical history Social History Smoking and tobacco/nicotine status: never used tobacco/nicotine Physical Exam Const: COMMON NORMALS: no acute distress, patient oriented x3, healthy appearing and alert GENERAL APPEARANCE: cooperative ORIENTATION/CONSCIOUSNESS: Yes awake OTHER: Patient is ambulatory to the exam room unassisted. She is sitting upright on the stretcher in no acute distress. She is able to give history with no difficulty. She is interactive with exam appropriately. No family is at bedside at time of exam HENMT: COMMON NORMALS: normocephalic and atraumatic HEAD & SCALP: normocephalic and atraumatic Neck/C-Spine: COMMON NORMALS: full ROM Chest: CHEST: Yes Symmetrical chest wall rise Resp: COMMON NORMALS: normal respiratory effort EFFORT & INSPECTION: Yes able to speak in complete sentences : EXTERNAL FEMALE EXAM: No externally tender, No external swelling and Yes lesion (Left inferior labia, dark papule. Nontender. No drainage. ) Extremity: COMMON NORMALS: full ROM Neuro: COMMON NORMALS: patient oriented x3 SENSORIUM/ORIENTATION: Yes alert Psych: COMMON NORMALS: cooperative Course Vital Signs: Vital signs: Vital Signs Temperature 98.3 F 06/01/25 14:59 Pulse Rate 76 06/01/25 15:44 Blood Pressure 135/79 06/01/25 15:44 Pulse Oximetry 99 06/01/25 15:44 Oxygen Delivery Me thod Room Air 06/01/25 14:59 MDM - Female Medical Decision Making 25yo female presents with concern of a lump on her left labia. States that she had a really bad yeast infection about a week ago and she does not know if the lump was present at that time or if it is related to it. 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 She reports that the lump is not tender, but she is concerned of possible STD. Patient denies any other concerns at this time. Patient is nontoxic in appearance. Vital signs are stable. Nursing acting as director of rooms during exam. Dark papule noted to the inferior labia. Nontender. No drainage. No surrounding erythema or tenderness. Discussed findings with patient. Advised that this does not appear to be any kind of infectious lesion. It does not have an ulceration for concern of syphilis or HSV. Encourage patient to continue to monitor the area. Recommend she follow-up with her doctor, call Friday with an update of symptoms and to discuss a recheck. Return precautions provided. Patient states understanding and has no further questions or concerns at this time. Medical Records I reviewed the patient's medical records. No radiology studies performed this visit Discharge Plan Discharge Patient Disposition: Home Clinical Impression: Labial lesion Condition: Stable Prescriptions: No Action No Known Home Medications Discharge Orders: Discharge ED (Routine); Ordered 06/01/25 Ordered By: Turner Adam Referrals: Mj Jaramillo MD [Primary Care Provider, [facility]] Discharge Diet: Usual diet Discharge Activity: Resume usual activity Patient Instructions: Pain Management, Patient Portal & Jacquie Instructions Activity Restrictions/Additional Instructions: No acute concerning abnormalities noted to the area The bump was potentially a ingrowing hair that is now resolving Continue to monitor for any worsening Follow-up with primary care, call in a few days with an update of symptoms and to discuss a recheck Return to the emergency department if any rapid worsening symptoms and as needed Print Language: German Coding Level of Care Code ED Club Director for Riddhi Harrison
[2025-06-01 15:44] VITALS: BP 135/79; PULSE 76; O2SAT 99
== END 2025-06-01 15:44 | disposition home or self-care (01) ==
PROVIDERS: Emergency Provider Nurse Practitioner; PCP Family Medicine
DX: N90.89 Other specified noninflammatory disorders of vulva and perineum (principal)
CPT/HCPCS: 99281